=== PATIENT | male | born 1970 | race Caucasian/White ===

== ENCOUNTER 2025-01-14 14:43 | Inpatient (IN) ==
[2025-01-14] MEDS: SODIUM CHLORIDE 0.9% 500 ML IV ONE (15:17)
[2025-01-14 15:23] LABS: Basophils # (auto) 0.03 K/uL (0.00-0.20); Basophils % (auto) 0.5 %; Eosinophils # (auto) 0.08 K/uL (0.00-0.50); Eosinophils % (auto) 1.4 %; Hematocrit (blood only) 43.2 % (42.0-52.0); Hemoglobin 15.6 g/dl (14.0-18.0); Immature Granulocytes # (auto) 0.02 K/uL (0.01-0.20); Immature Granulocytes % (auto) 0.3 %; Lymphocytes % (auto) 22.6 %; Mean Corpuscular Hemoglobin 29.8 pg (25.0-34.0); Mean Corpuscular Hgb Conc 36.1 g/dL (32.0-36.0); Mean Corpuscular Volume 82.6 fL (80.0-100.0); Mean Platelet Volume 9.1 fL (9.4-12.4); Monocytes # (auto) 0.38 K/uL (0.11-0.59); Monocytes % (auto) 6.6 %; Neutrophils # (auto) 3.95 K/uL (1.40-6.50); Neutrophils % (auto) 68.6 %; Platelet Count 216 K/uL (130-400); RDW Coefficient of Variation 12.2 % (11.5-14.5); RDW Standard Deviation 36.4 fL (36.4-46.3); Red Blood Count 5.23 M/uL (4.70-6.10); White Blood Count 5.76 K/ul (4.8-10.8)
[2025-01-14] MEDS: SODIUM CHLORIDE 0.9% 1,000 ML IV ONE (15:34)
[2025-01-14 15:51] LABS: Albumin Globulin Ratio 1.4 (0.9-2); Albumin Level 4.8 gm/dl (3.4-5.0); Bilirubin,Total 0.7 mg/dl (0.2-1.0); Calcium 9.9 mg/dl (8.6-10.3); Creatinine Clr Calc Pharmacy 82.8 ml/min; Globulin 3.5 gm/dl (2.5-4.0); Potassium 4.1 mmol/L (3.5-5.1); Total Protein 8.3 gm/dl (6.0-8.3)
[2025-01-14] MEDS ORDERED: GLUCOSE 40% GEL 15 GM TUBE PO PRN (16:04)
[2025-01-14] MEDS ORDERED: GLUCOSE 10 TAB/TUBE PO PRN (16:04)
[2025-01-14] MEDS ORDERED: GLUCAGON FOR INJ 1 MG VIAL SQ PRN (16:04)
[2025-01-14] MEDS ORDERED: DEXTROSE 50% 50 ML SYRINGE IV PRN (16:04)
[2025-01-14] MEDS ORDERED: CARBOHYDRATES FOR HYPOGLYCEMIA PO PRN (16:04)
[2025-01-14] MEDS: INSULIN REGULAR 250 UNITS in SODIUM CHLORIDE 0.9% 247.5 ML IV SCH (16:32)
[2025-01-14] MEDS: STAT IV Infusion **Titration per Protocol STA (16:37)
[2025-01-14] MEDS ORDERED: PHARMACY GLYCEMIC MGMT CONSULT PRN (17:25)
--- NOTE | 2025-01-14 17:32 | History & Physical Report ---
Date of Service January 14, 2025 Assessment & Plan (1) Diabetes type 2: (2) HTN (hypertension): (3) HLD (hyperlipidemia): (4) KRISHNA on CPAP: Plan The patient is a 54-year-old male with a past medical history of HTN, KRISHNA on CPAP who presents to the ED on after he was sent in from PCP with abnormal glucose level of over 600 New DM type II Check A1c, continue insulin drip initiated in the ER Blood sugar already improving, ABG with a pH of 7.4, CO2 32, bicarb 20.8 Patient will likely need insulin on discharge, concerns with noncompliance Hx HTNuncontrolled: Continue home dose of losartan, consider increasing losartan to 50 mg daily on DC Continue IV hydralazine as needed for SBP over 160 Hx KRISHNA on CPAP: Continue CPAP at bedtime Hx HLDrefusing statin: Fish oil recommended by PCP A total of 60 minutes was spent on chart review/reviewing diagnostic data/facilitating plan of care/discussion with consultants Full code DVT prophylaxis: SCDs, encourage ambulation History of Present Illness Chief Complaint: Abnormal blood work, hyperglycemia Primary Care Provider: Nimisha Riley DO The patient is a 54-year-old male with a past medical history of KRISHNA on CPAP, HTNuncontrolled, noncompliance, HLD, refusing statin who presents to the ED on after he was directed to come to the ER after getting outpatient blood work done that showed an elevated glucose of over 600. Patient has no known history of diabetes. Patient does report some increased thirst, dry skin, dry mouth and increased urination but otherwise denies any abdominal pain/nausea/vomiting/diarrhea/chest pain/fever/chills/shortness of breath. On arrival to the ED, blood pressure is elevated with systolics in the 180s, Patient reports he had been unable to refill his losartan and has been off of this for 3 weeks. His first dose of losartan 25 mg was taken again this morning. Labs remarkable for sodium 133, chloride 94, anion gap 14, BUN 24, glucose 500 ABG showed a pH of 7.4, CO2 32.5, bicarb 20.8 The patient was started on insulin drip in the ER and will be admitted to telemetry for further management of new onset type 2 diabetes Allergies Allergy/AdvReac Type Severity Reaction Status Date / Time No Known Allergies Allergy Verified 01/14/25 16:11 Home Medications Medication Instructions Recorded Confirmed Type losartan 25 mg tablet 25 mg PO DAILY 01/14/25 01/14/25 History Past Med/Surg History Problem List (Updated 01/14/25 @ 17:28 by JONNY Bryan) KRISHNA on CPAP HLD (hyperlipidemia) HTN (hypertension) Diabetes type 2 Social History Smoking Status: Never smoker Second Hand Exposure: No; Do You Dip or Chew Tobacco: No; Tobacco Cessation Education Requested by Patient: No Hx Alcohol Use: No Hx Substance Use: No Preferred Language: Turkish Communication Ability: Effective Mechanical Inspector Required: No Beliefs That Will Affect Care: None Current Living Situation: Spouse Other Information That Helps Us Care for You: No Feels Safe at Home: Yes Safety Concerns: Feels Safe At This Time Assistive Devices: None Review of Systems Review of Systems: All systems reviewed & are unremarkable except as noted in HPI & below Physical Exam Constitutional: WD/WN, vitals as above Eyes: PERRL, conjunctivae normal, anicteric sclerae ENMT: external ear and nose normal, oropharynx normal Neck: trachea midline, no thyromegaly Respiratory: normal respiratory effort, lungs clear to auscultation Cardiovascular: RRR, no murmur, no edema Gastrointestinal (Abdomen): normal bowel sounds, soft, nontender, no hepatosplenomegaly Musculoskeletal: no cyanosis or clubbing, extremities motor strength 5/5 Neurologic: PERRL, EOMI, accommodation nl, no face palsy, no dysarthria Psychiatric: A+Ox3, euthymic affect Lymphatic: no cervical or axillary lymphadenopathy Results & Data Results & Data Vital Signs (Past 12 Hours) Vital Signs Temp Pulse Pulse Resp BP BP Pulse Ox 01/14/25 17:00 74 16 189/119 H 98 01/14/25 15:16 93 H 01/14/25 14:45 36.9 C 113 H 18 175/132 H 97 O2 Del Method 01/14/25 17:00 Room Air 01/14/25 15:16 01/14/25 14:45 Room Air Laboratory Results Laboratory Results WBC 5.76 K/ul (4.8-10.8) 01/14/25 14:56 RBC 5.23 M/uL (4.70-6.10) 01/14/25 14:56 Hgb 15.6 g/dl (14.0-18.0) 01/14/25 14:56 Hct 43.2 % (42.0-52.0) 01/14/25 14:56 MCV 82.6 fL (80.0-100.0) 01/14/25 14:56 MCH 29.8 pg (25.0-34.0) 01/14/25 14:56 MCHC 36.1 g/dL (32.0-36.0) H 01/14/25 14:56 RDW Std Deviation 36.4 fL (36.4-46.3) 01/14/25 14:56 RDW Coeff of Mp 12.2 % (11.5-14.5) 01/14/25 14:56 Plt Count 216 K/uL (130-400) 01/14/25 14:56 MPV 9.1 fL (9.4-12.4) L 01/14/25 14:56 Immature Gran % (Auto) 0.3 % 01/14/25 14:56 Neut % (Auto) 68.6 % 01/14/25 14:56 Lymph % (Auto) 22.6 % 01/14/25 14:56 Weld % (Auto) 6.6 % 01/14/25 14:56 Eos % (Auto) 1.4 % 01/14/25 14:56 Baso % (Auto) 0.5 % 01/14/25 14:56 Neut # (Auto) 3.95 K/uL (1.40-6.50) 01/14/25 14:56 Lymph # (Auto) 1.30 K/uL (1.20-3.40) 01/14/25 14:56 Weld # (Auto) 0.38 K/uL (0.11-0.59) 01/14/25 14:56 Eos # (Auto) 0.08 K/uL (0.00-0.50) 01/14/25 14:56 Baso # (Auto) 0.03 K/uL (0.00-0.20) 01/14/25 14:56 Immature Gran # (Auto) 0.02 K/uL (0.01-0.20) 01/14/25 14:56 Sodium 133 mmol/L (136-145) L 01/14/25 14:56 Potassium 4.1 mmol/L (3.5-5.1) 01/14/25 14:56 Chloride 94 mmol/L (98-107) L 01/14/25 14:56 Carbon Dioxide 25 mmol/L (21-32) 01/14/25 14:56 Anion Gap 14 (3-11) H 01/14/25 14:56 BUN 24 mg/dl (6-23) H 01/14/25 14:56 Creatinine 1.26 mg/dl (0.6-1.4) 01/14/25 14:56 Est Cr Clr Drug Dosing 82.8 ml/min 01/14/25 14:56 eGFR 67.78 01/14/25 14:56 BUN/Creatinine Ratio 19.0 (10-20) 01/14/25 14:56 Glucose 500 mg/dl (70-99(Fasting)) H* 01/14/25 14:56 POC Glucose 388 mg/dl (70-99) H* 01/14/25 16:14 Calcium 9.9 mg/dl (8.6-10.3) 01/14/25 14:56 Total Bilirubin 0.7 mg/dl (0.2-1.0) 01/14/25 14:56 AST 15 U/L (13-39) 01/14/25 14:56 ALT 24 U/L (7-52) 01/14/25 14:56 Alkaline Phosphatase 95 U/L (34-104) 01/14/25 14:56 Total Protein 8.3 gm/dl (6.0-8.3) 01/14/25 14:56 Albumin 4.8 gm/dl (3.4-5.0) 01/14/25 14:56 Globulin 3.5 gm/dl (2.5-4.0) 01/14/25 14:56 Albumin/Globulin Ratio 1.4 (0.9-2) 01/14/25 14:56 Supervising Physician Co-Signing Physician Notes Attending addendum: The patient was seen and examined in emergency room in presence of the He has been on lisinopril for the blood pressure and went to check his blood before getting the refill of medications and noted to have very high blood sugar and was sent into the emergency room He has not had a blood test for years Denies any significant symptoms but having mild symptoms of dry mouth, polydipsia and polyuria Denies any abdominal pain, nausea or vomiting,denies any numbness and or tingling in the extremities On examination Obese lying in bed without any acute distress Hemodynamically stable with blood pressure on the upper side at 189/119 Chest was clear to auscultate bilaterally HeartS1-S2, regular Abdomendistended, soft bowel sound present Extremitiesno edema CNSalert, awake and oriented x 3 and no focal sensory or motor deficit appreciated His admission labs and medications reviewed Noted to have a blood sugar of 388 without any evidence of DKA or any significant symptoms Given initial diagnosis with high blood sugar he will be started with intravenous insulin and will monitor monitored in the PCU He will likely to need insulin on discharge His blood pressure medications will be continued Agree with assessment and plan as outlined above by JONNY Harrell and take the full responsible care in the hospital Total time taken to document all this was [address] Rey Carter
[2025-01-14 18:06] LABS: Basophils # (auto) 0.03 K/uL (0.00-0.20); Basophils % (auto) 0.5 %; Eosinophils # (auto) 0.07 K/uL (0.00-0.50); Eosinophils % (auto) 1.2 %; Hematocrit (blood only) 40.8 % (42.0-52.0); Hemoglobin 14.4 g/dl (14.0-18.0); Immature Granulocytes # (auto) 0.02 K/uL (0.01-0.20); Immature Granulocytes % (auto) 0.3 %; Lymphocytes # (auto) 1.51 K/uL (1.20-3.40); Lymphocytes % (auto) 26.2 %; Mean Corpuscular Hemoglobin 29.9 pg (25.0-34.0); Mean Corpuscular Hgb Conc 35.3 g/dL (32.0-36.0); Mean Corpuscular Volume 84.8 fL (80.0-100.0); Mean Platelet Volume 9.1 fL (9.4-12.4); Monocytes # (auto) 0.35 K/uL (0.11-0.59); Monocytes % (auto) 6.1 %; Neutrophils # (auto) 3.79 K/uL (1.40-6.50); Neutrophils % (auto) 65.7 %; Platelet Count 182 K/uL (130-400); RDW Standard Deviation 37.1 fL (36.4-46.3); Red Blood Count 4.81 M/uL (4.70-6.10); White Blood Count 5.77 K/ul (4.8-10.8)
[2025-01-14] MEDS ORDERED: ACETAMINOPHEN 325 MG TAB PO PRN (18:21)
[2025-01-14 18:22] LABS: Alanine Aminotransferase 22 U/L (7-52); Albumin Globulin Ratio 1.3 (0.9-2); Albumin Level 4.4 gm/dl (3.4-5.0); Alkaline Phosphatase 84 U/L (34-104); Anion Gap 9 (3-11); Aspartate Aminotransferase 16 U/L (13-39); BUN Creatinine Ratio 20.8 (10-20); Bilirubin,Total 0.6 mg/dl (0.2-1.0); Blood Urea Nitrogen 21 mg/dl (6-23); Carbon Dioxide 27 mmol/L (21-32); Chloride 99 mmol/L (98-107); Creatinine Clr Calc Pharmacy 103.3 ml/min; Globulin 3.4 gm/dl (2.5-4.0); Glucose 306 mg/dl (70-99(Fasting)); Potassium 3.8 mmol/L (3.5-5.1); Sodium 135 mmol/L (136-145); Total Protein 7.8 gm/dl (6.0-8.3)
[2025-01-14] MEDS: PENDING 1/2NSS+20mEq KCL IVF SCH (18:22)
[2025-01-14] MEDS: SODIUM CHLOR 0.45% + 20MEQ KCL 20 MEQ/1,000 ML BAG IV SCH (18:33)
[2025-01-14 18:34] LABS: Estimated Average Glucose 324 mg/dl; Hemoglobin A1C 12.9 % (4.5-5.6)
[2025-01-14] MEDS: INSULIN ASPART PER UNIT CHARGE SC SCH (18:35)
[2025-01-14] MEDS: DKA GOAL RANGE 150-250 mg/dl ONE (18:35)
[2025-01-14] MEDS: LOSARTAN POTASSIUM 25 MG TAB PO SCH (18:35)
[2025-01-14 19:50] LABS: Chol HDL Ratio 7.4 (0-5); Cholesterol 238 mg/dl (0-200); HDL Cholesterol 32 mg/dl; Triglycerides 676 mg/dl (0-150)
[2025-01-14 20:10] VITALS: RESP 18
[2025-01-14] MEDS: hydrALAZINE HCL 20 MG/ML VIAL IV PRN (20:20)
[2025-01-14 20:36] LABS: Calcium 8.8 mg/dl (8.6-10.3); Creatinine Clr Calc Pharmacy 87.6 ml/min; Phosphorus 2.7 mg/dl (2.5-4.9); Potassium 3.5 mmol/L (3.5-5.1)
--- NOTE | 2025-01-14 20:40 | Emergency Department Note ---
History of Present Illness General Chief Complaint: Hyperglycemia Stated Complaint: HIGH BLOOD SUGAR Time Seen by Provider: 01/14/25 15:05 History of Present Illness Provider Complaint: + abnormal lab Returns today for: + called because of abnormal lab/test Description of abnormal result: High blood sugar Associated symptoms: no fever, no chills, no chest pain, no shortness of breath, no rash or no abdominal pain Home Medications Medication Instructions Recorded Confirmed Type losartan 25 mg tablet 25 mg PO DAILY 01/14/25 01/14/25 History Allergies Allergy/AdvReac Type Severity Reaction Status Date / Time No Known Allergies Allergy Verified 01/14/25 16:11 Past Med/Surg History Problem List (Updated 01/14/25 @ 20:40 by Blanco Mistry MD) DKA (diabetic ketoacidosis) (Acute) KRISHNA on CPAP HLD (hyperlipidemia) HTN (hypertension) Diabetes type 2 Social History Smoking Status: Never smoker Second Hand Exposure: No; Do You Dip or Chew Tobacco: No; Tobacco Cessation Education Requested by Patient: No Hx Alcohol Use: No Hx Substance Use: No Preferred Language: Georgian Communication Ability: Effective Voicer Required: No Beliefs That Will Affect Care: None Current Living Situation: Spouse Other Information That Helps Us Care for You: No Feels Safe at Home: Yes Safety Concerns: Feels Safe At This Time Assistive Devices: None Physical Exam 2 Vital Signs: Vital Signs - 24 hr 01/14/25 14:45 01/14/25 15:16 01/14/25 17:00 Temperature 36.9 C Temperature Source Temporal Artery Sc an Pulse Rate 113 H 93 H Pulse Rate [Finger ] 74 Respiratory Rate 18 16 Respiratory Effort / Characteristics Non-Labored Sponta neous Respiratory Depth Normal Respiratory Patter n Regular Blood Pressure 175/132 H Blood Pressure [Ri ght Arm] 189/119 H Blood Pressure Vi n 146 Blood Pressure Vi n [Right Arm] 142 Pulse Oximetry 97 98 Oxygen Delivery Me thod Room Air Room Air Sepsis Recent Feve r Within 48 Hours No Sepsis New/Unexpla ined Change in Men arthur Status N/A Sepsis Action Take n by Nursing No Action Required Physical Exam: Physical Exam GENERAL: oriented to person, place, and time. appears well-developed and well- nourished. HENT: Exam performed. - Head: Normocephalic and atraumatic. EYES: Conjunctivae and EOM are normal. Right eye exhibits no discharge. Left eye exhibits no discharge. No scleral icterus. NECK: Normal range of motion. Neck supple. No JVD present. CV: Normal rate, regular rhythm, normal heart sounds and intact distal pulses. There is no peripheral edema. Palpable radial pulses bue. PULM/CHEST: Effort normal and breath sounds normal. No respiratory distress. No stridor. no wheezes. no rales. ABD: The abdomen is soft. There is no tenderness. NEURO: Motor and sensation grossly intact. SKIN: Skin is warm and dry. He is not diaphoretic. PSYCH: normal mood and affect. Behavior is normal. Judgment and thought content normal. Course Course 1505: The patient was evaluated in room C2. A complete history and physical exam was performed Cardiac monitoring: An order was placed for continuous cardiac monitoring. The monitor shows a rate of 100 with sinus rhythm interpreted by vt 1605: Vital signs stable. Labs show evidence of DKA. Patient be started on insulin drip and given IV fluids and admitted to the [facility] hospitalist team. Administered Medications Hydralazine HCl (Hydralazine Hcl 20 Mg/Ml Vial) 5 mg IV Q6H PRN PRN Reason: SBP > 160 Stop: 02/13/25 17:29 Last Admin: 01/14/25 20:20 Dose: 5 mg Documented By: GTMarcia Insulin Human Regular 250 (units/ Sodium Chloride) 250 mls @ 5 mls/hr IV .Q24H SIMRAN; Protocol Stop: 02/13/25 16:14 Last Titration: 01/14/25 19:32 Dose: 5 units/hr, 5 mls/hr Documented By: GTH Co-signed By: PAH Titration: 01/14/25 18:40 Dose: 5 units/hr, 5 mls/hr Documented By: CA Co-signed By: GDH Titration: 01/14/25 17:31 Dose: 5 units/hr, 5 mls/hr Documented By: YNES Co-signed By: BS Admin: 01/14/25 16:32 Dose: 5 units/hr, 5 mls/hr Documented By: SW Co-signed By: TNK Potassium Chloride/Sodium Chloride (1/2 Nss + 20meq Kcl 1000ml) 20 meq in 1,000 mls @ 80 mls/hr IV .[id number] SIMRAN Stop: 02/13/25 18:29 Last Admin: 01/14/25 18:33 Dose: 80 mls/hr Documented By: APRYL Insulin Aspart (Insulin Aspart Per Unit Charge) 0 units SC ACHS SIMRAN Stop: 02/13/25 16:29 Last Admin: 01/14/25 19:53 Dose: 6 units Documented By: GT Co-signed By: ELSI Admin: 01/14/25 18:35 Dose: Not Given Documented By: APRYL Losartan Potassium (Losartan Potassium 25 Mg Tab) 25 mg PO DAILY SIMRAN Stop: 02/13/25 18:20 Last Admin: 01/14/25 18:35 Dose: 25 mg Documented By: APRYL Discontinued Medications Sodium Chloride (Nss) 500 mls @ 999 mls/hr IV .Q31M ONE Stop: 01/14/25 15:36 Last Infusion: 01/14/25 15:51 Dose: Infused Documented By: Admin: 01/14/25 15:17 Dose: 999 mls/hr Documented By: YNES Sodium Chloride (Nss) 1,000 mls @ 999 mls/hr IV .Q1H1M ONE Stop: 01/14/25 16:30 Last Infusion: 01/14/25 16:37 Dose: Infused Documented By: Admin: 01/14/25 15:34 Dose: 999 mls/hr Documented By: YNES Aburto (Stat Iv Infusion Titration Per Protocol) 1 each N/A NOW STA Stop: 01/14/25 16:05 Last Admin: 01/14/25 16:37 Dose: Not Given Documented By: YNES Aburto (Dka Goal Range 150-250 Mg/Dl) 1 each N/A ONE ONE Stop: 01/14/25 16:05 Last Admin: 01/14/25 18:35 Dose: 1 each Documented By: APRYL Aburto (Pending 1/2nss+20meq Kcl Ivf) 1 each N/A Q2H SIRMAN Stop: 02/13/25 17:29 Last Admin: 01/14/25 18:22 Dose: Not Given Documented By: APRYL Medical Decision Making Medical Records Attestation: I reviewed the patient's medical records. External medical records obtained by [facility] Case management and reviewed. Patient had blood work done by [facility] PCP today which showed a glucose of 637 with an anion gap of 13. According to the [facility] records patient's last PCP visit was in 2021 and the patient has multiple no-shows and missed calls for appointments in the [facility] portal. Laboratory Data Attestation: I reviewed the patient's lab results. 01/14/25 17:48 01/14/25 17:48 Lab Results 01/14/25 01/14/25 01/14/25 Range/Units 14:47 14:56 16:14 WBC 5.76 (4.8-10.8) K/ul RBC 5.23 (4.70-6.10) M/uL Hgb 15.6 (14.0-18.0) g/dl Hct 43.2 (42.0-52.0) % MCV 82.6 (80.0-100.0) fL MCH 29.8 (25.0-34.0) pg MCHC 36.1 H (32.0-36.0) g/dL RDW Std Deviation 36.4 (36.4-46.3) fL RDW Coeff of Mp 12.2 (11.5-14.5) % Plt Count 216 (130-400) K/uL MPV 9.1 L (9.4-12.4) fL Immature Gran % (Auto) 0.3 % Neut % (Auto) 68.6 % Lymph % (Auto) 22.6 % Frederick % (Auto) 6.6 % Eos % (Auto) 1.4 % Baso % (Auto) 0.5 % Neut # (Auto) 3.95 (1.40-6.50) K/uL Lymph # (Auto) 1.30 (1.20-3.40) K/uL Frederick # (Auto) 0.38 (0.11-0.59) K/uL Eos # (Auto) 0.08 (0.00-0.50) K/uL Baso # (Auto) 0.03 (0.00-0.20) K/uL Immature Gran # (Auto) 0.02 (0.01-0.20) K/uL Sodium 133 L (136-145) mmol/L Potassium 4.1 (3.5-5.1) mmol/L Chloride 94 L (98-107) mmol/L Carbon Dioxide 25 (21-32) mmol/L Anion Gap 14 H (3-11) BUN 24 H (6-23) mg/dl Creatinine 1.26 (0.6-1.4) mg/dl Est Cr Clr Drug Dosing 82.8 ml/min eGFR 67.78 BUN/Creatinine Ratio 19.0 (10-20) Glucose 500 H* (70-99(Fasting)) mg/dl POC Glucose 502 H* 388 H* (70-99) mg/dl Calcium 9.9 (8.6-10.3) mg/dl Total Bilirubin 0.7 (0.2-1.0) mg/dl AST 15 (13-39) U/L ALT 24 (7-52) U/L Alkaline Phosphatase 95 (34-104) U/L Total Protein 8.3 (6.0-8.3) gm/dl Albumin 4.8 (3.4-5.0) gm/dl Globulin 3.5 (2.5-4.0) gm/dl Albumin/Globulin Ratio 1.4 (0.9-2) [facility] Narrative 1505: The patient was evaluated in room C2. A complete history and physical exam was performed Cardiac monitoring: An order was placed for continuous cardiac monitoring. The monitor shows a rate of 100 with sinus rhythm interpreted by me 1605: Vital signs stable. Labs show evidence of DKA. Patient be started on insulin drip and given IV fluids and admitted to the [facility] Hospitalist team. Impression & Plan DKA (diabetic ketoacidosis) Critical Care Time Critical Care Time: Yes Total Critical Care Time: 45 I have personally spent greater than 45 minutes of critical care time in the direct management of this patient. This includes bedside care, interpretation of diagnostic studies, and testing, discussion with consultants, patient, and family members, and other required patient management activities. This 45 minutes is in excess of all separately billable procedures. Discharge Plan Visit Data Chief Complaint: Hyperglycemia Stated Complaint: HIGH BLOOD SUGAR ED Provider: Blanco Mistry Discharge Problem: DKA (diabetic ketoacidosis) Patient Disposition: Admitted As Inpatient Discharge Instructions Interventions: ED Discharge Assessment Last Done: 01/14/25 17:59
[2025-01-15 00:55] LABS: BUN Creatinine Ratio 20.2 (10-20); Calcium 8.4 mg/dl (8.6-10.3); Creatinine Clr Calc Pharmacy 105.4 ml/min; Phosphorus 3.6 mg/dl (2.5-4.9); Potassium 3.6 mmol/L (3.5-5.1)
--- OUTSIDE RECORDS SUMMARY | 2025-01-15 02:35 | External Medical Summary | Summary of Care ---
Author Name Unknown Organization [facility] Address [address] [facility] [address] Phone [phone] Care Team Providers Care Silk Spotter Name Role Phone Cosby Heriberto Munroebrea Primary Care Provider Encounter Details Date Type Department Care Team (Late st Contact Info) Description 10/13/2024 Population Health External Data Unspecified Department Allergies No known active allergiesdocumented as of this encounter (statuses as of 10/13/2024) Medications CPAP every night at bedtime. Active Blood Pressure Cuff cHECK BLOOD PRESSURE DAILY AND RECORD 1 Each 09/09/2023 Active Losartan Potassium 25 MG Oral Tablet (Cozaar)Indicat ions:HTN, goal below 140/90 Take 1 Tablet by mouth in the morning. 90 Tablet 09/14/2024 1:28 PM EST 07/15/2024 Active documented as of this encounter (statuses as of 10/13/2024) Active Problems Problem Noted Date Diagnosed Date HTN, goal below 140/90 05/09/2022 Dyslipidemia, goal LDL below 130 05/09/2022 Obesity, Class I, BMI 30.0-34.9 (see actual BMI) 07/16/2011 KRISHNA on CPAP 03/12/2006 Overview (04/02/2018): [facility] CFLEX [facility] History of supraventricular tachycardia 05/05/20 02 Overview (05/05/2002): ablated at [facility] 1998 documented as of this encounter (statuses as of 10/13/2024) Resolved Problems Problem Noted Date Diagnosed Date Resolved Date ADJ DISORDER W/DEPRES MOOD 08/22/2006 1 10/08/2016 documented as of this encounter (statuses as of 10/13/2024) Immunizations Name Administration Dates Next Due Covid-19 Ad26, Single Dose (Kathy/J&J) 022 Seasonal Influenza Vac., MDV, IM, 0.5 mL (Fluzon e) 08/20/2011 TDAP, Age 7 and older, IM (Adacel) 12/10/2010 documented as of this encounter Social History Tobacco Use Types Packs/Day Years Used Date Smoking Tobacco: Former Cigarettes 1 8 Smokeless Tobacco: Former Quit: 09/22/1998 Comments:quit smoking 1997 Alcohol Use Standard Drinks/Week Comments Yes 6 (1 standard drink = 0.6 oz pur e alcohol) 4-6 beers per week PHQ-2 Answer Date Recorded PHQ-2 Score 1 04/26/2020 Hunger Vital Sign Answer Date Recorded Worried About Running Out of Food in the Last Ye ar Never true 04/24/2020 Ran Out of Food in the Last Year Never true 04/24/2020 Sex and Gender Information Value Date Recorded Sex Assigned at Not on file Legal Sex Male 7:15 AM EST Gender Identity Not on file Sexual Orientation Not on file 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 on file Not on file Not on fi le documented as of this encounter Plan of Treatment Scheduled Procedures Name Priority Associated Diagnoses Date/Ti me COLONOSCOPY FLEXIBLE PROXIMAL DIAGNOSTIC Recall History of colon polyps Health Maintenance Due Date Last Done Comments Albumin/Creatinine Ratio 1988 Hepatitis B Vaccine (1 of 3 - 19+ 3-dose series) 1989 Cologuard 2015 Fecal Occult Blood Test 2015 Sigmoidoscopy 2015 Pneumococcal Vaccine: 50+ Years (1 of 1 - PCV) 2020 Zoster Vaccines (1 of 2) 2020 DTap/Tdap Vaccines (2 - Td or Tdap) 12/10/2020 12/10/2010, 04/22/2005 Depression Screening 04/26/2021 04/26/2020 GFR 04/02/2023 04/02/2022, 06/23, 02/10/2004 COVID-19 Vaccine ( season) 2024 10/05/2021 Influenza Vaccine (FLU shot) (#1) 2024 08/20/2011, 08/26/2001 Diabetes Screening 04/02/2025 04/02/2022, 1 10/08/2016, 09/01/2013, Additional history exists Lipid Panel 04/02/2027 04/02/2022, 07/23, 09/01/2013, Additional history exists Colonoscopy 09/30/2027 09/30/2022, 09/30/2022 Colorectal Cancer Screening 09/30/2027 Hepatitis C Screening Completed 06/07/2020 RETIRED - COLONOSCOPY-EVERY 5 YRS AGES 18-100 Discontinued 09/30/2022, 09/30/2022 HPV (Gardasil) Vaccine Aged Out No lo nger eligible based on patient's age to complete this topic MENINGOCOCCAL (MENACTRA/MENVEO) Aged Out No longer eligible based on patient's age to complete this topic Pneumococcal Vaccine: Pediatrics (0 to 5 Years) and At-Risk Patients (6 to 18 Years and 19+ Years) Aged Out No longer eligib le based on patient's age to complete this topic documented as of this encounter Medical Devices Not on filedocumented as of this encounter Care Teams Silk Spotter Relationship Specialty Start Date End Date Heriberto Cosby DO [address] [place] [id number] PCP - General Family Medicine 04/02/22 documented as of this encounter
--- OUTSIDE RECORDS SUMMARY | 2025-01-15 02:35 | External Medical Summary ---
Author Name Unknown Address Unknown Organization [id number]:[facility] [place] - [address] [place] [id number] Laboratory Report Ordering Provider Test Date Status MELISSA HIGUERA 01/14/2025 09:52:58 Final Normal: <30 mg/g creatinine< br/>High: 30-300 mg/g creatinine
Very High: >300 mg/g creatinine
Nephrotic: >2200 mg/g creatinine Observation Date Value Abnormality Reference (Units ) Status Albumin, Urine 01/14/2025 09:52:58 1.88 (mg/dL) Final Creatinine, Urine 01/14/2025 09:52:58 32 (mg/dL) Final Albumin/Creatinine [Mass Ratio] in Urine 01/14/2025 09:52:58 59 Above high normal <30 (mg/g Creat) Final Performing Location [facility] [place] - [address] [place] [id number]
--- OUTSIDE RECORDS SUMMARY | 2025-01-15 02:35 | External Medical Summary ---
Author Name Unknown Address Unknown Organization [id number]:[facility] [place] [address] - [address] [place] [id number] Laboratory Report Ordering Provider Test Date Status MELISSA HIGUERA 01/14/2025 09:51:48 Final Observation Date Value Abnormality Reference (Units ) Status BUN 01/14/2025 09:51:48 24 Above high normal 6-20 (mg/dL) Final Creatinine 01/14/2025 09:51:48 1.0 0.6-1.2 (mg/dL) Final Glomerular filtration rate/1.73 sq M.predicted [Volume Rate/Area] in Serum, Plasma or Blood by Creatinine-based formula (CKD-EPI) 01/14/2025 09:51:48 88 >=60 (mL/min) Final eGFR is calculated based on the CKD-EPI 2020 equation. Sodium 01/14/2025 09:51:48 132 Below low normal 135 -146 (mmol/L) Final Potassium 01/14/2025 09:51:48 4.9 3.5-5.1 (m mol/L) Final Cl 01/14/2025 09:51:48 93 Below low normal 98- 107 (mmol/L) Final CO2 01/14/2025 09:51:48 26 22-32 (mmo l/L) Final Anion gap 01/14/2025 09:51:48 13 7-15 (mmol /L) Final Glucose 01/14/2025 09:51:48 637 Above upper panic li mits 70-120 (mg/dL) Final Results rechecked Calcium 01/14/2025 09:51:48 9.9 8.4-10.2 ( mg/dL) Final Performing Location [facility] [address] [place] [id number]
--- OUTSIDE RECORDS SUMMARY | 2025-01-15 02:35 | External Medical Summary | Summary of Care ---
Author Name Unknown Organization [facility] Address [address] [facility] [place] [address] Phone [phone] Care Team Providers Care Yarn Examiner Name Role Phone Unavailable Primary Care Provider Unavailabl e Reason for Visit * Reason Onset Date Comments Medication Refill 01/12/2025 Encounter Details Date Type Department Care Team (Late st Contact Info) Description 01/12/2025 Refill Family [facility] [address] [place] [address] Nimisha Riley DO [address] [place] [address] HTN, goal below 140/90 Allergies No known active allergiesdocumented as of this encounter (statuses as of 01/13/2025) Medications CPAP every night at bedtime. Active Blood Pressure Cuff cHECK BLOOD PRESSURE DAILY AND RECORD 1 Each 3 Active Losartan Potassium 25 MG Oral Tablet (Cozaar)Indicat ions:HTN, goal below 140/90 Take 1 Tablet by mouth in the morning. 90 Tablet 10/15/2024 3:54 PM EST 4 01/13/20 25 Discontinu ed(Refill) documented as of this encounter (statuses as of 01/13/2025) Active Problems Problem Noted Date Diagnosed Date HTN, goal below 140/90 05/09/2022 Dyslipidemia, goal LDL below 130 05/09/2022 Obesity, Class I, BMI 30.0-34.9 (see actual BMI) 07/16/2011 KRISHNA on CPAP 03/12/2006 Overview (04/02/2018): [facility] History of supraventricular tachycardia 05/05/20 02 Overview (05/05/2002): ablated at [facility] [place] 1998 documented as of this encounter (statuses as of 01/13/2025) Resolved Problems Problem Noted Date Diagnosed Date Resolved Date ADJ DISORDER W/DEPRES MOOD 08/22/2006 1 10/08/2016 documented as of this encounter (statuses as of 01/13/2025) Immunizations Name Administration Dates Next Due Covid-19 [...] 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 * Telephone Encounter - Kirti Pereira railcar foreman - 01/12/2025 3:27 PM EDT Received message from [facility] regarding patient needing labs. Call Placed pt has no time for labs - tried to explain but he would not schedule Thank you for your assistance Kirti Pereira Professional Bass Fisher III [facility] 01/12/2025,3:27 PM * Telephone Encounter - Jessica Wolfe [facility] - 01/12/2025 3:18 PM EDTPending Prescriptions: Disp Refills Losartan Potassium 25 MG Oral Tablet (Coza*30 Tab*0 Sig: Take 1 Tablet by mouth in the morning. * Telephone Encounter - Jessica Wolfe [facility] - 01/12/2025 3:17 PM EDT Unable to authorize medication refills for pended medication(s) at this time. Per refill protocol patient should have BMP on file within past year. Reviewed : AMP report Care Gaps/Health Maintenance medications list for any routine labs typically ordered for this patient. Lab orders placed. Please contact patient to advise of labs ordered for blood draw AND URINE specimen (patient will have to be able to void to provide sample). Fasting is not required. Advise to obtain labs before requesting the next refill. After contacting patient, please forward request to No primary care provider on file.. Thank You, Jessica Wolfe [facility] Clinical Pharmacist [facility] ([facility]) [phone] 01/12/2025, 3:18 PM * Telephone Encounter - Milton Stokes, railcar foreman - 01/12/2025 2:40 PM EDT Pt needs new RX until appt. Pt is out of medication. Did you pend patient's preferred pharmacy and medication before forwarding?yes Pharmacy: [facility] Pending Prescriptions: Disp Refills Losartan Potassium 25 MG Oral Tablet (Coz*90 Tab*0 Sig: Take 1 Tablet by mouth in the morning. Last Visit: 05/09/2022 (in office), 09/27/2021 (telemedicine) Next Visit: 03/04/2025 If no future appointments scheduled, and last appointment is greater than a year ago, please schedule patient for a follow-up appointment Last date the medication was ordered: 07/15/2024 Is this request for a controlled substance?No Urine Drug Screen:No results found for this or any previous visit. Patient Phone Numbers Labs: Lab Results Component Value Date/Time CREAT 1.0 04/02/2022 02:26 PM CREAT 0.9 07/19/2011 08:38 AM POTASSIUM 4.3 04/02/2022 02:26 PM POTASSIUM 4.5 07/19/2011 08:38 AM TSH 1.64 02/10/2004 12:07 PM LDL 105 04/02/2022 02:26 PM LDL 90 08/08/2017 08:44 AM LDL NOT APPLICABLE 08/08/2017 08:44 AM ALT 63 02/10/2004 12:07 PM documented in this encounter Plan of Treatment Upcoming Encounters Date Type Department Care Team (Late st Contact Info) Description 03/04/2025 8:00 AM EDT Office Visit [facility] [address] [place] [address] Nimisha Riley DO [address] [place] [address] Scheduled Procedures Name Priority Associated Diagnoses Date/Ti me COLONOSCOPY FLEXIBLE PROXIMAL DIAGNOSTIC Recall History of colon polyps Health Maintenance Due Date Last Done Comments Depression Screening 1982 Albumin/Creatinine Ratio 1988 Hepatitis B Vaccine (1 of 3 - 19+ 3-dose series) 1989 Cologuard 2015 Fecal Occult Blood Test 2015 Sigmoidoscopy 2015 Pneumococcal Vaccine: 50+ Years (1 of 1 - PCV) 2020 Zoster Vaccines (1 of 2) 2020 DTap/Tdap Vaccines (2 - Td or Tdap) 12/10/2020 12/10/2010, 04/22/2005 GFR 04/02/2023 04/02/2022, 06/23, 02/10/2004 COVID-19 Vaccine ( season) 2024 10/05/2021 Diabetes Screening 04/02/2025 04/02/2022, 1 10/08/2016, 09/01/2013, Additional history exists Influenza Vaccine (FLU shot) (Season Ended) 2025 08/20/2011, 08/26/2001 Lipid Panel 04/02/2027 04/02/2022, 07/23, 09/01/2013, Additional [...] on patient's age to complete this topic Meningitis B Vaccine (Bexsero/Trumemba) Aged Out No longer eligible based on patient's age to complete this topic documented as of this encounter Medical Devices Not on filedocumented as of this encounter Visit Diagnoses Diagnosis HTN, goal below 140/90 Unspecified essential hypertension documented in this encounter
--- OUTSIDE RECORDS SUMMARY | 2025-01-15 02:35 | External Medical Summary | Summary of Care ---
Author Name Unknown Organization [facility] Address [address] [place] [facility] [place] [address] Phone [phone] Care Team Providers Care Rn Travel Name Role Phone Heriberto Cosby DO Primary Care Provider Reason for Referral * Evaluate & Treat - Unlimited Visits (Within 30 days (routine)) - Authorized Specialty Diagnoses / Procedures Referred By Teresa jones Referred To Contact Chiropractor Diagnoses Hip pain, unspecified laterality Heriberto Cosby DO [address] [address] Phone: tel: fax: Referral ID Status Reason Start Date Expiration Date Visits Requested Visits Authorized [id number] Authorized Specialty Services Required 11/16/2024 999 999 Question Answer Referral Priority Within 30 days (routine) Where should this appointment be scheduled? External Reason for Visit * Reason Onset Date Comments Referral 11/12/2024 Encounter Details Date Type Department Care Team (Late st Contact Info) Description 11/12/2024 Telephone Family Practice [facility] [address] [address] Heirberto Cosby DO [address] [place] [address] Referral Allergies No known active allergiesdocumented as of this encounter (statuses as of 11/16/2024) Medications CPAP every night at bedtime. Active Blood Pressure Cuff cHECK BLOOD PRESSURE DAILY AND RECORD 1 Each 09/09/2023 Active Losartan Potassium 25 MG Oral Tablet (Cozaar)Indicat ions:HTN, goal below 140/90 Take 1 Tablet by mouth in the morning. 90 Tablet 10/15/2024 3:54 PM EST 07/15/2024 Active documented as of this encounter (statuses as of 11/16/2024) Active Problems Problem Noted Date Diagnosed Date HTN, goal below 140/90 05/09/2022 Dyslipidemia, goal LDL below 130 05/09/2022 Obesity, Class I, BMI 30.0-34.9 (see actual BMI) 07/16/2011 KRISHNA on CPAP 03/12/2006 Overview (04/02/2018): [facility] History of supraventricular tachycardia 05/05/20 02 Overview (05/05/2002): ablated at [facility] [place] 1998 documented as of this encounter (statuses as of 11/16/2024) Resolved Problems Problem Noted Date Diagnosed Date Resolved Date ADJ DISORDER W/DEPRES MOOD 08/22/2006 1 10/08/2016 documented as of this encounter (statuses as of 11/16/2024) Immunizations Name Administration Dates Next Due Covid-19 [...] 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 Inboxologist Covering Provider All replies or additional communication must be routed to the PCP * Telephone Encounter - Luis Bennett KRISHNA - 11/12/2024 8:36 AM EST Has the patient been seen for this problem? (Y/N)?: no If No, an appt needs to be scheduled before a referral will be placed (exception: proceed with referral request if referral request is for a yearly routine appointment with speciality) Patient Name: Yanet Ames Patient Primary care provider: Heriberto Cosby, DO Does this need to be an insurance referral (Y/N)?: Yes If Yes, does the insurance referral need to be placed into the [employer] system? Not sure Name of preferred specialist: [facility] Type of specialist: CHIROPRACTOR REFERRAL Location of specialist: [place] [facility] Phone #: [phone] Specialist's Fax #: [phone] Reason for visit: He stated he really doesn't know Date of visit: 9:456 this morning 11/12/24 I told him that he would have to make an appointment and he stated that he is not going to pay twice just to get a referral. documented in this encounter Plan of Treatment Scheduled Procedures Name Priority Associated Diagnoses Date/Ti me COLONOSCOPY FLEXIBLE PROXIMAL DIAGNOSTIC Recall History of colon polyps Scheduled Referrals Name Type Priority Associated Diagnoses Orde r Schedule CHIROPRACTOR REFERRAL OP Referral Within 30 days (routine) Hip pain, unspecified laterality Ordered: 11/16/2024 Health Maintenance Due Date Last Done Comments [...] 04/02/2023 04/02/2022, 06/23, 02/10/2004 COVID-19 Vaccine ( - season) 2024 10/05/2021 Influenza Vaccine (FLU shot) [...] as of this encounter Visit Diagnoses Diagnosis Hip pain, unspecified laterality- Primary documented in this encounter Care Teams Rn Travel Relationship Specialty Start Date End Date Heriberto Cosby DO [address] [place] [address] PCP - General Family Medicine 04/02/22 documented as of this encounter
--- OUTSIDE RECORDS SUMMARY | 2025-01-15 02:35 | External Medical Summary | Summary of Care ---
Author Name Unknown Organization [facility] Address [address] [facility] [place] [address] Phone [phone] Care Team Providers Care Sql Developer Name Role Phone Cosby Heriberto [place]ro[place] Primary Care Provider Reason for Visit * Reason Onset Date Comments Durable Medical Equipment 07/06/2024 CPAP s upplies, pressure and NOC Encounter Details Date Type Department Care Team (Late st Contact Info) Description 07/06/2024 Telephone [facility] [address] [place] [place] [phone] Yamila Tate DO [address] [facility] [address] Durable Medical Equipment (CPAP supplies, ... Allergies No known active allergiesdocumented as of this encounter (statuses as of 07/29/2024) Medications Medication Sig Dispensed Refills Start Date End Date Status CPAP every night at bedtime. Active Blood Pressure Cuff cHECK BLOOD PRESSURE DAILY AND RECORD 1 Each 09/09/2023 Active Losartan Potassium 25 MG Oral Tablet (Cozaar)Indicatio ns:HTN, goal below 140/90 Take 1 Tablet by mouth in the morning. 90 Tablet 3 07/30/2023 07/12/2024 Discontinued (Refill) documented as of this encounter (statuses as of 07/29/2024) Active Problems Problem Noted Date Diagnosed Date HTN, goal below 140/90 05/09/2022 Dyslipidemia, goal LDL below 130 05/09/2022 Obesity, Class I, BMI 30.0-34.9 (see actual BMI) 07/16/2011 KRISHNA on CPAP 03/12/2006 Overview: [facility]LEX A[facility] History of supraventricular tachycardia 05/05/20 Overview: ablated at [facility] [place] 1998 documented as of this encounter (statuses as of 07/29/2024) Resolved Problems Problem Noted Date Diagnosed Date Resolved Date ADJ DISORDER W/DEPRES MOOD 08/22/2006 1 10/08/2016 documented as of this encounter (statuses as of 07/29/2024) Immunizations Name Administration Dates Next Due Covid-19 Ad26, Single Dose (Kathy/J&J) 022 Seasonal Influenza Vac., MDV, IM, 0.5 mL (Fluzon e) 08/20/2011,08/26/2001 TD, Preservative Free 04/22/2005 TDAP, Age 7 and older, IM (Adacel) [...] in the Last Year Never true 04/24/2020 Utilities Answer Date Recorded Do you have trouble paying y our heating, water, or electric bill? (Adult - for ages 18 years and over) Not on file 03/09/2024 Is your family able to pay t he heat, water, or electric bill? (Household - for ages 0-17 years) Not on file 03/09/2024 Does your family have access to good internet? (Household - for ages 0-17 years) Not on file 03/09/2024 Social Connections Answer Date Recorded How often do you feel lonely or isolated from those around you? (Adult - for ages 18 years and over) Not on file 03/09/2024 Sex and Gender Information Value Date Recorded Sex Assigned at Not on file Gender Identity Not on file Sexual Orientation Not on file Job Start Date Occupation Industry Not on file Not on file Not on file documented as of this encounter Miscellaneous Notes * Telephone Encounter - Yamila Tate DO - 07/29/2024 5:50 PM EST Nocturnal oximetry 07/22/24 on CPAP & RA. SpO2 uyen 88%, time <= 88% 2 seconds, time = 89% 5 seconds. * Telephone Encounter - Alta Bolanos OSA - 07/06/2024 9:39 AM EDT DME order for CPAP supplies and NOC submitted to [facility]. documented in this encounter Plan of Treatment Scheduled Procedures Name Priority Associated Diagnoses Date/Ti me COLONOSCOPY FLEXIBLE PROXIMAL DIAGNOSTIC Recall History of colon polyps Health Maintenance Due Date Last Done Comments Albumin/Creatinine Ratio 1988 Hepatitis B Vaccine (1 of 3 - 19+ 3-dose series) 1989 Cologuard 2015 Fecal Occult Blood Test 2015 Sigmoidoscopy 2015 Zoster Vaccines (1 of 2) 2020 DTap/Tdap [...] 5 Years) and At-Risk Patients (6 to 64 Years) Aged Out No longer eligible based on patient's age to complete this topic documented as of this encounter Medical Devices Not on filedocumented as of this encounter Care Teams Sql Developer Relationship Specialty Start Date End Date Heriberto Cosby DO [address] [place] [address] PCP - General Family Medicine 04/02/22 documented as of this encounter
--- OUTSIDE RECORDS SUMMARY | 2025-01-15 02:35 | External Medical Summary | Summary of Care ---
Author Name Unknown Organization [facility] Address [address] [facility] [place] [address] Phone [phone] Care Team Providers Care Cad Librarian Name Role Phone Unavailable Primary Care Provider Unavailabl e Reason for Visit * Reason Onset Date Comments Medication Refill 01/12/2025 Encounter Details Date Type Department Care Team (Late st Contact Info) Description 01/12/2025 Refill Family [facility] [address] [place] [address] Nimisha Riley DO [address] [place] [address] HTN, goal below 140/90 Allergies No known [...] tachycardia 05/05/20 02 Overview (05/05/2002): ablated at [facility] [place] 1998 documented as of this encounter (statuses [...] 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 * Telephone Encounter - Kirti Pereira hair tinter - 01/12/2025 3:27 PM EDT Received message from [facility] regarding patient needing labs. Call Placed pt has no time for labs - tried to explain but he would not schedule Thank you for your assistance Kirti Pereira Corn Cutter Operator III [facility] 01/12/2025,3:27 PM * Telephone Encounter - Jessica Wolfe [facility] - 01/12/2025 3:18 PM EDTPending Prescriptions: Disp Refills Losartan Potassium 25 MG Oral Tablet (Coza*30 Tab*0 Sig: Take 1 Tablet by mouth in the morning. * Telephone Encounter - Jessica Wolfe [facility] - 01/12/2025 3:17 PM EDT Unable to [...] provider on file.. Thank You, Jessica Wolfe [facility] Clinical Pharmacist [facility] ([facility]) [phone] 01/12/2025, 3:18 PM * Telephone Encounter - Milton Stokes, hair tinter - 01/12/2025 2:40 PM EDT Pt needs new RX until appt. Pt is out of medication. Did you pend patient's preferred pharmacy and medication before forwarding?yes Pharmacy: [facility] Pending Prescriptions: Disp Refills Losartan Potassium [...] Description 03/04/2025 8:00 AM EDT Office Visit [facility] [address] [place] [address] Nimisha Riley DO [address] [place] [address] Scheduled Procedures Name Priority Associated Diagnoses Date/Ti [...]
[2025-01-15] MEDS: LANTUS PER UNIT CHARGE SC STA (04:30)
[2025-01-15] MEDS: INSULIN ASPART PER UNIT CHARGE SC SCH (04:30)
[2025-01-15 05:00] LABS: BUN Creatinine Ratio 21.3 (10-20); Calcium 8.3 mg/dl (8.6-10.3); Creatinine Clr Calc Pharmacy 117.2 ml/min; Magnesium 1.9 mg/dl (1.7-2.4); Potassium 3.7 mmol/L (3.5-5.1)
[2025-01-15] MEDS: LANTUS PER UNIT CHARGE SC SCH (09:01)
[2025-01-15] MEDS: LOSARTAN POTASSIUM 50 MG TAB PO SCH (09:01)
--- NOTE | 2025-01-15 10:12 | Pharmacy Report ---
Pharmacy Glycemic Short Note 2 - Date of Service January 15, 2025 - Glycemic Short BSG Results (Last 24 hours): 01/14/25 01/14/25 01/14/25 14:47 14:56 16:14 Glucose 500 H* POC Glucose 502 H* 388 H* 01/14/25 01/14/25 01/14/25 17:29 17:48 18:33 Glucose 306 H* POC Glucose 339 H* 294 H 01/14/25 01/14/25 01/14/25 19:32 20:02 20:23 Glucose 262 H POC Glucose 274 H 251 H 01/14/25 01/14/25 01/14/25 21:32 22:02 23:05 Glucose POC Glucose 169 H 170 H 152 H 01/15/25 01/15/25 01/15/25 00:07 00:20 01:05 Glucose 138 H POC Glucose 139 H 120 H 01/15/25 01/15/25 01/15/25 02:06 04:09 04:17 Glucose 189 H POC Glucose 118 H 181 H 01/15/25 07:26 Glucose POC Glucose 210 H OUTPATIENT ANTIDIABETIC REGIMEN: * None * A1c 12.9% - NEW DIAGNOSIS ASSESSMENT: * 54 YO M, PMH of HTN, KRISHNA on CPAP, new dx type 2 DM, sent to ED yesterday from PCP for BSG over 600mg/dl. * Patient started on insulin drip, and transitioned to basal bolus insulin last night. On type 2 DM Diet. * Patient received 10 units of basal this AM at 0430, will begin 20 units daily this morning and tighten NovoLog parameters, titrate to goal blood sugar. PLAN FOR INPATIENT GLYCEMIC CONTROL: * Basal insulin * Lantus 20 units SQ daily * Bolus insulin * NovoLog per scale ACHS or Q6hrs while NPO * Goal Range: Low 110 mg/dL - High 140 mg/dL * Correction Factor: 25 mg/dL/unit * Nutritional / Prandial insulin per carb ratio of 1 unit per 8 grams CHO consumed
[2025-01-15 11:16] VITALS: BP 177/115; TEMP 98.1; O2SAT 97
--- NOTE | 2025-01-15 13:03 | Discharge Summary ---
Date of Service January 15, 2025 Admission HPI Per Admitting Provider The patient is a 54-year-old male with a past medical history of KRISHNA on CPAP, HTNuncontrolled, noncompliance, HLD, refusing statin who presents to the ED on after he was directed to come to the ER after getting outpatient blood work done that showed an elevated glucose of over 600. Patient has no known history of diabetes. Patient does report some increased thirst, dry skin, dry mouth and increased urination but otherwise denies any abdominal pain/nausea/vomiting/diarrhea/chest pain/fever/chills/shortness of breath. On arrival to the ED, blood pressure is elevated with systolics in the 180s, Patient reports he had been unable to refill his losartan and has been off of this for 3 weeks. His first dose of losartan 25 mg was taken again this morning. Labs remarkable for sodium 133, chloride 94, anion gap 14, BUN 24, glucose 500 ABG showed a pH of 7.4, CO2 32.5, bicarb 20.8 The patient was started on insulin drip in the ER and will be admitted to telemetry for further management of new onset type 2 diabetes Admission Exam Per Admitting Provider Constitutional: WD/WN, vitals as above Eyes: PERRL, conjunctivae normal, anicteric sclerae ENMT: external ear and nose normal, oropharynx normal Neck: trachea midline, no thyromegaly Respiratory: normal respiratory effort, lungs clear to auscultation Cardiovascular: RRR, no murmur, no edema Gastrointestinal (Abdomen): normal bowel sounds, soft, nontender, no hepatosplenomegaly Musculoskeletal: no cyanosis or clubbing, extremities motor strength 5/5 Neurologic: PERRL, EOMI, accommodation nl, no face palsy, no dysarthria Psychiatric: A+Ox3, euthymic affect Lymphatic: no cervical or axillary lymphadenopathy Principal Diagnosis Type 2 diabetes mellitus Hypertension Hypertriglyceridemia Discharge Exam Constitutional: WD/WN, vitals as above, NAD, sitting up in bed, pleasant, conversing easily Respiratory: normal respiratory effort, lungs clear to auscultation, no wheeze, rales, rhonchi. Normal insp/exp effort, no accessory muscle use Cardiovascular: RRR, no murmur, no edema Vessels: no JVD or carotid bruit Chest: normal inspection of chest Abdomen: normal bowel sounds, soft, nontender, no hepatosplenomegaly Musculoskeletal: no cyanosis or clubbing, extremities motor strength 5/5 Skin: no rashes, warm and dry normal turgor Neurologic: PERRL, EOMI, accommodation nl, no face palsy, no dysarthria CN's II- XI intact bilaterally and moves all extremities Psychiatric: A+Ox3, euthymic affect Discharge Data Allergies Allergy/AdvReac Type Severity Reaction Status Date / Time No Known Allergies Allergy Verified 01/14/25 16:11 Consultations 01/14/25 16:05 ED Decision to Admit Stat Hospital Course (1) Diabetes type 2: (2) HTN (hypertension): (3) HLD (hyperlipidemia): (4) KRISHNA on CPAP: Plan The patient is a 54-year-old male with a past medical history of HTN, KRISHNA on CPAP who presents to the ED on after he was sent in from PCP with abnormal glucose level of over 600 New DM type II Patient was referred from outpatient after he was found to have blood glucose above 600s at this outpatient. Venous blood gas did not show acidosis Patient was started on insulin drip and was admitted to the medical floor. HbA1c was found to be 12.9. Extensive discussion was done with the patient regarding diagnosis of diabetes, management, diabetic dieting and exercise. He was started on metformin 500 mg twice a day after the discussion. We also discussed starting insulin given his significantly elevated A1c which he was agreeable with. We discussed starting glargine 10 units in the morning and titrating it up based on the response. We also discussed following up with primary care provider and diabetic clinic to monitor and discuss further treatment. I also discussed possibility of initiating GLP-1 agonist as outpatient given the history of class I obesity, diabetes, high blood pressure and triglyceridemia. Patient to discuss it further as outpatient. Hypertensionlosartan was increased to 50 mg once a day. I discussed home blood pressure monitoring. Patient to make a log of blood pressure reading and follow-up as outpatient Hypertriglyceridemiatriglyceride of 676, total cholesterol of 238 and LDL of 32 Mg per DL. He needs signifies insulin resistance. Given his diagnosis of diabetes and significantly elevated triglycerides; he was initiated on high-dose statin. Please note the above document was generated using voice recognition software. It may contain grammatical, syntax or spelling errors. Any formal questions or concerns about the content, text or information contained within the body of thi s dictation should be directly addressed to the provider for clarification Total Time Total Time Spent Total Time Spent (In Minutes): 60 Total Time Includes: Examination of the Patient, Discharge Planning, Medication Reconciliation, Communication With Other Providers and Other Discharge Plan Discharge Items Patient Disposition: Home - Self-Care Reason For Visit: NEW DM2 Discharge Diagnosis: Uncontrolled type 2 diabetes mellitus Hypertriglyceridemia Activity: Resume your previous activity Non-emergency contact: Primary Care Provider Call non-emergency contact if: you have any medication questions and your symptoms worsen Follow-up/Referrals: Nimisha Riley, [Primary Care Provider] - Diet: Carb Consistent or DM2 Addtl Attending Provider Instructions: You were admitted to the hospital due to high blood glucose levels. Your HbA1c was 12.9%. You are prescribed following medication for type 2 diabetes mellitus; 1) Take metformin 500 mg extended release twice a day. Please take it after food. 2) Take insulin glargine 10 units once a day in the morning. Please check fasting blood glucose and make adjustment to the insulin as follows; a) If the fasting blood glucose is greater than 200; increase insulin by 4 units every 2 days b) If the fasting blood glucose is between 140-200; increase insulin by 2 units every 2 days c) If the fasting glucoses between 90 to 140; continue the same dose. d) If the fasting blood glucose is less than 90; decrease insulin by 2 units You are also found to have high blood pressure for which you are prescribed lo sartan 50 mg once a day. Please check your blood pressure daily as we discussed and make a log of it. Adjustment may be needed depending on your blood pressure. You are also prescribed Lipitor 80 mg once a day for high triglyceride and cholesterol levels. An appointment will be set up with your primary care doctor sometime next week to discuss further management. You can discuss about possibly starting GLP-1 agonist(like Ozempic) that can help with high blood glucose, high cholesterol and high blood pressure. Pending Studies at Discharge: No Stand-Alone Forms: My [employer], Smoking Cessation Medications and DC Order Prescriptions: New (DME) blood-glucose meter [OneTouch Ultra2 Meter] Misc See Rx Instructions .Route Qty: 1 0RF Rx Instructions: As directed (DME) OneTouch Verio test strips Strip See Rx Instructions .Route Qty: 100 0RF Rx Instructions: As directed (DME) lancets [OneTouch Delica Plus Lancet] 33 gauge misc See Rx Instructions .Route Qty: 100 0RF Rx Instructions: As directed insulin glargine [Basaglar KwikPen U-100 Insulin] 100 unit/mL (3 mL) insulin pen 10 unit subcut DAILY Qty: 15 0RF (DME) pen needle, diabetic [Pen Needle] 31 gauge x 1/4" needle See Rx Instructions .Route Qty: 100 0RF Rx Instructions: As directed losartan 50 mg tablet 50 mg PO DAILY Qty: 30 0RF atorvastatin [Lipitor] 80 mg tablet 80 mg PO DAILY Qty: 30 0RF metformin 500 mg tablet extended release 24 hr 500 mg PO BID Qty: 60 0RF Discontinued losartan 25 mg tablet 25 mg PO DAILY Discharge Orders: Discharge Order (Routine); Ordered 01/15/25 Ordered By: Emery Up Admission Data Admit Date/Time: 01/14/25 17:12 Attending Provider: Emery Up Admit Provider: Brenda Carter Primary Care Provider: Nimisha Riley Other Providers: Brenda Carter
[2025-01-15 13:07] VITALS: PULSE 75
[2025-01-15] MEDS ORDERED: LANTUS PER UNIT CHARGE SC SCH (21:00)
--- NOTE | 2025-01-16 13:03 | Electrocardiogram Report ---
Test Reason : Blood Pressure : */* mmHG Vent. Rate : 72 BPM Atrial Rate : 72 BPM P-R Int : 204 ms QRS Dur : 94 ms QT Int : 414 ms P-R-T Axes : 52 13 12 degrees QTcB Int : 453 ms Normal sinus rhythm Normal ECG No previous ECGs available Confirmed by Dav Minaya ([id number]) on 01/16/2025 1:03:11 PM Referred By: REFERRED SELF Confirmed By: Dav Minaya
[2025-01-17 09:51] LABS: iSTAT Arterial Blood Gas HCO3 21 meg/L (19-24); iSTAT Arterial Blood Gas pCO2 33 mmHg (35-46); iSTAT Arterial Blood Gas pH 7.41 (7.35-7.45); iSTAT Arterial Blood Gas pO2 81 mmHg (80-95); iSTAT Carbon Dioxide 22 mmol/L (24-31); iSTAT Hematocrit 36 % (42-52); iSTAT Hemoglobin 12.2 g/dl (14.0-18.0); iSTAT Potassium 3.8 mmol/L (3.3-5.0); iSTAT Sodium 133 mmol/L (135-144)
== END 2025-01-15 13:47 | disposition home or self-care (01) | DRG 639 ==
LOC: ED 14:43 → 2S 17:12 → SUATTDRO 17:12 → 2S 17:59

== ENCOUNTER 2025-01-23 15:30 | Inpatient (IN) ==
--- OUTSIDE RECORDS SUMMARY | 2025-01-23 15:33 | External Medical Summary | Summary of Care ---
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 Pt admitted to [facility] on 01/14/2025 and discharged on 01/15/2025 for HTN, Type 2 DM. Pt continues the insulin, Metformin, Lipitor and Losartan 50 mg. Pt states he has had nausea and diarrhea on 01/15 and questions it may be related to Lipitor, diarrhea improved since taking Lomotil last evening. Immunizations 01/20/2025 Hospital Follow-Up 01/20/2025 Encounter Details Date Type Department Care Team (Late st Contact Info) Description 01/20/2025 11:20 AM EDT Office Visit Family [facility] [address] [phone] Nimisha Smith DO [address] [address] Hospital discharge follow-up*; Need for dszuadgcjr-rrulwcm-px rtussis (Tdap) vaccine; Dyslipidemia, goal LDL below 130; KRSIHNA on CPAP; HTN, goal below 140/90; Type 2 diabetes mellitus with hemoglobin A1c goal of less than 7.0% (HCC); Screening for prostate cancer Allergies No known active allergiesdocumented as of this encounter (statuses as of 01/20/2025) Medications CPAP every night at bedtime. Active Blood Pressure Cuff cHECK BLOOD PRESSURE DAILY AND RECORD 1 Each 09/09/20 Active Additional Information Patient not taking.Reported on 01/20/2025 Losartan Potassium 25 MG Oral Tablet (Cozaar)Indicat ions:HTN, goal below 140/90 Take 1 Tablet by mouth in the morning. 90 Tablet 01/15/20 Active Additional Information Patient taking differently: 50 mgOral Daily(AM), Reported on 01/20/2025 [employer] Reflect w/Device Kit Use as directed. 01/16/20 25 Active [place] [employer] In Vitro Strip Use as directed. 01/16/20 Active Insulin Glargine-yfgn 100 UNIT/ML Subcutaneous Solution Pen-injector Inject 10 Units under the skin in the morning. Or as per sliding scale. 01/16/20 25 Active BD Pen Needle Micro U/F 32G X 6 MM Use 1 Each as directed in the morning. Use as directed.. 01/16/20 25 Active Pinpoint MD Delica Plus [id number] Use as directed. 01/16/20 25 Active metFORMIN HCl ER 500 MG Oral Tablet Extended Release 24 Hour (Glucophage XR) Take 1 Tablet by mouth in the morning and 1 Tablet before bedtime. 01/16/20 25 Active Losartan Potassium 50 MG Oral Tablet (Cozaar) Take 1 Tablet by mouth in the morning. 01/21/20 25 Active Atorvastatin Calcium 80 MG Oral Tablet (Lipitor) Take 0.5 Tablets by mouth in the morning. 01/21/20 25 Active Atorvastatin Calcium 80 MG Oral Tablet (Lipitor) Take 1 Tablet by mouth in the morning. 01/16/20 25 025 Discontinued documented as of this encounter (statuses as of 01/20/2025) Active Problems Problem Noted Date Diagnosed Date HTN, goal below 140/90 05/09/2022 Dyslipidemia, goal LDL below 130 05/09/2022 Obesity, Class I, BMI 30.0-34.9 (see actual BMI) 07/16/2011 KRISHNA on CPAP 03/12/2006 Overview (04/02/2018): REMSTAR CFLEX A[facility] History of supraventricular tachycardia 05/05/20 02 Overview (05/05/2002): [place] [facility] [place] documented as of this encounter (statuses as of 01/20/2025) Resolved Problems Problem Noted Date Diagnosed Date Resolved Date ADJ DISORDER W/DEPRES MOOD 08/22/2006 1 10/08/2016 documented as of this encounter (statuses as of 01/20/2025) Immunizations Name Administration Dates Next Due Covid-19 Ad26, Single Dose (Kathy/J&J) 022 Seasonal Influenza Vac., MDV, IM, 0.5 mL (Fluzon e) 08/20/2011 TDAP, Age 7 and older, IM (Adacel) 01/20/2025, documented as of this encounter Social History Tobacco Use Types Packs/Day Years Used Date Smoking Tobacco: Former Cigarettes 1 8 Smokeless Tobacco: Former Quit: 09/22/1998 Tobacco Cessation:Counseling Given: Not Answered Comments:quit smoking 03/22/1998 Alcohol Use Standard Drinks/Week Comments Yes 6 [...] 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 Not on file Not on fi le documented as of this encounter Last Filed Vital Signs Vital Sign Reading Time Taken Comments Blood Pressure 110/73 01/20/2025 11:20 AM EDT Pulse 87 01/20/2025 11:20 AM EDT Temperature 36.1 °C (97 °F) 01/20/2025 11:20 AM EDT Respiratory Rate 16 01/20/2025 11:20 AM EDT Oxygen Saturation 97% 01/20/2025 11:20 AM EDT Inhaled Oxygen Concentration - - Weight 108.5 kg (239 lb 2 oz) 01/20/2025 11:20 A M EDT Height - - Body Mass Index 34.31 06/30/2024 11:00 AM EDT documented in this encounter Patient Instructions * Patient Instructions* Dorcas Luna LPN - 01/20/2025 11:25 AM EDT ~~PATIENT INSTRUCTIONS FOR TDAP VACCINE~~ Possible side effects of TDAP vaccine, (tetanus shot), are usually mild and can include: 1. Soreness or redness at injection site 2. Low grade fever 3. Body aches You may use a fever / pain reducing medication as needed for these symptoms. LET YOUR DOCTOR KNOW IMMEDIATELY IF YOU HAVE DIFFICULTY BREATHING OR SWALLOWING, EXPERIENCE ITCHINGOF FEET OR HANDS, HAVE SWELLING OF EYES, FACE OR INSIDE OF NOSE. documented in this encounter Progress Notes * Nimisha Smith DO - 01/20/2025 11:31 AM EDT Subjective: Yanet Ames is a 54 year old male. Chief Complaint Patient presents with Hospital Follow-Up Pt here for Hosp Follow up. Pt admitted to [facility] on 01/14/2025 and discharged on 01/15/2025 for HTN, Type 2 DM. Pt continues the insulin, Metformin, Lipitor and Losartan 50 mg. Pt states he hashad nausea and diarrhea on 01/15 and questions it may be related to Lipitor, diarrhea improved sincetaking Lomotil last evening. Immunizations Hospital Follow-Up There are no exam notes on file for this visit. HPI: This is a 54 year old male with PMHx as below presents with hospital follow up Noticed inc urination December 2024 Admitted01/14/25 Discharged 01/15/25 Pmhx: KRISHNA, HTN, HLD Admitted with elevated BS in 600s A1c 12.9 New meds Metformin, insulin, losartan (increased dosage), lipitor Believes has diarrhea from statin Health Maintenance Due Topic Date Due Depression Screening Never done Hepatitis B Vaccine (1 of 3 - 19+ 3-dose series) Never done Zoster Vaccines (1 of 2) Never done Pneumococcal Vaccine: 50+ Years (1 of 1 - PCV) Never done DTap/Tdap Vaccines (2 - Td or Tdap) 12/10/2020 COVID-19 Vaccine ( season) 2024 Patient Active Problem List Diagnosis History of supraventricular tachycardia KRISHNA on CPAP Obesity, Class I, BMI 30.0-34.9 (see actual BMI) HTN, goal below 140/90 Dyslipidemia, goal LDL below 130 Current Outpatient Medications Medication Sig Dispense Refill CPAP every night at bedtime. Losartan Potassium 25 MG Oral Tablet (Cozaar) Take 1 Tablet by mouth in the morning. (Patient taking differently: Take 2 Tablets by mouth in the morning.) 90 Tablet 0 [employer] Reflect w/Device Kit Use as directed. [employer] In Vitro Strip Use as directed. Insulin Glargine-yfgn 100 UNIT/ML Subcutaneous Solution Pen-injector Inject 10 Units under the skinin the morning. Or as per sliding scale. BD Pen Needle Micro U/F 32G X 6 MM Use 1 Each as directed in the morning. Use as directed.. Pinpoint MD Delica Plus [id number] Use as directed. metFORMIN HCl ER 500 MG Oral Tablet Extended Release 24 Hour (Glucophage XR) Take 1 Tablet by mouthin the morning and 1 Tablet before bedtime. Losartan Potassium 50 MG Oral Tablet (Cozaar) Take 1 Tablet by mouth in the morning. Atorvastatin Calcium 80 MG Oral Tablet (Lipitor) Take 0.5 Tablets by mouth in the morning. Blood Pressure Cuff cHECK BLOOD PRESSURE DAILY AND RECORD (Patient not taking: Reported on 01/20/2025) 1 Each 0 No current facility-administered medications for this visit. Past Medical History: Diagnosis Date Adjustment disorder with depressed mood 08/22/2006 INFORMATION 2 left wrist fracutres, casted, no pins Morbid obesity, BMI not known (HCC) 07/16/2011 Paroxysmal SVT (supraventricular tachycardia) ([facility]) 05/05/2002 Sleep apnea 03/12/2006 Sleep apnea, obstructive Past Surgical History: Procedure Laterality Date ABLATE HEART DYSRHYTHM FOCUS 09/22/1998 COLONOSCOPY, DIAGNOSTIC (RECTUM) 09/30/2022 serrated adenomatous polyps, diverticulosis, repeat 5 yrs / COLONOSCOPY FLEXIBLE PROXIMAL DIAGNOSTIC performed by Dima Lara MD at ENDOSCOPY [facility] DENTAL SURGERY PROCEDURE NEC 09/22/1990 Dental Surgery Procedure INFORMATION 08/13/2004 umbilical hernia repair RADIAL KERATOTOMY 09/22/1997 [facility] REMOVAL OF ADENOIDS, UNDER AGE 12 age 6 VASECTOMY 12/26/2006 Review of patient's allergies indicates: No Known Allergies Family History Problem Relation Name Age of Onset Other (Pt denies significant fhx) Other Family Status Relation Status Mo Alive Fa Alive Sis Alive Sis Alive Sis Alive Bro Alive MGMA bone cancer? MGFA bone cancer? 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: [employer] Comment: [employer] Tobacco Use Smoking status: Former Current packs/day: 1.00 Average packs/day: 1 pack/day for 8.0 years (8.0 ttl pk-yrs) Types: Cigarettes Smokeless tobacco: Former Quit date: 09/22/1998 Tobacco comments: quit smoking 03/22/1998 Vaping Use Vaping status: Never Used Substance and Sexual Activity Alcohol use: Yes Alcohol/week: 6.0 standard drinks of alcohol Types: 6 12 oz of beer per week Comment: 4-6 beers per week Drug use: No Sexual activity: Yes Partners: Female control/protection: Surgical Other Topics Concern Not on file Social History Narrative 1 step child Cate Cary 1992 biological Damián 2001 from . Social Needs Financial Resource Strain: Not on file Food Insecurity: No Food Insecurity (04/24/2020) Hunger Vital Sign Worried About Running Out of Food in the Last Year: Never true Ran Out of Food in the Last Year: Never true Transportation Needs: Not on file Social Connections: Not on file Housing Stability: Not on file Review of Systems: As per HPI all other ROS negative. Wt Readings from Last 3 Encounters: 01/20/25 239 lb 2 oz (108.5 kg) 09/30/22 243 lb (110.2 kg) 05/09/22 243 lb 5 oz (110.4 kg) Results for orders placed or performed in visit on 01/14/25 BASIC METABOLIC PANEL Result Value Ref Range BUN 24 (H) 6 - 20 mg/dL CREATININE 1.0 0.6 - 1.2 mg/dL EGFR 88 >=60 mL/min SODIUM 132 (L) 135 - 146 mmol/L POTASSIUM 4.9 3.5 - 5.1 mmol/L CHLORIDE 93 (L) 98 - 107 mmol/L CO2 26 22 - 32 mmol/L ANION GAP 13 7 - 15 mmol/L GLUCOSE 637 (HH) 70 - 120 mg/dL CALCIUM 9.9 8.4 - 10.2 mg/dL ALBUMIN / CREATININE RATIO, URINE Result Value Ref Range Albumin, Random Urine 1.88 mg/dL Creatinine, Random Urine 32 mg/dL Albumin / Creatinine Ratio, Urine 59 (H) <30 mg/g Creat OBJECTIVE: Physical Exam: BP 110/73 | Pulse 87 | Temp 97 °F (36.1 °C) | Resp 16 | Wt 239 lb 2 oz (108.5 kg) | SpO2 97% | BMI 34.31 kg/m² | BSA 2.31 m² General: alert, healthy, and no distress Heart: regular rate & rhythm, no murmur, and no gallops Lungs: lungs clear to auscultation Abdomen: abdomen soft, non-tender, normal bowel sounds, and no masses or organomegaly Extremities: no joint deformities, effusion, or inflammation, no edema Hospital discharge follow-up (Primary) - DISCH MED RECON CUR MED LIS Need for ffosbgmnlk-valjehc-guhdyomlo (Tdap) vaccine - TDAP (AGE 7 AND OLDER), ADACEL Dyslipidemia, goal LDL below 130 - CBC WITH WBC DIFFERENTIAL; Future; Expected date: 04/22/2025 - COMPREHENSIVE METABOLIC PANEL; Future; Expected date: 04/22/2025 - TSH WITH FREE T4 IF INDICATED; Future; Expected date: 04/22/2025 - LIPID PANEL WITH DIRECT LDL IF TG IS HIGH; Future; Expected date: 04/22/2025 KRISHNA on CPAP HTN, goal below 140/90 - CBC WITH WBC DIFFERENTIAL; Future; Expected date: 04/22/2025 - COMPREHENSIVE METABOLIC PANEL; Future; Expected date: 04/22/2025 - TSH WITH FREE T4 IF INDICATED; Future; Expected date: 04/22/2025 - LIPID PANEL WITH DIRECT LDL IF TG IS HIGH; Future; Expected date: 04/22/2025 Type 2 diabetes mellitus with hemoglobin A1c goal of less than 7.0% (HCC) - HEMOGLOBIN A1C; Future; Expected date: 04/22/2025 - CBC WITH WBC DIFFERENTIAL; Future; Expected date: 04/22/2025 - COMPREHENSIVE METABOLIC PANEL; Future; Expected date: 04/22/2025 - TSH WITH FREE T4 IF INDICATED; Future; Expected date: 04/22/2025 - LIPID PANEL WITH DIRECT LDL IF TG IS HIGH; Future; Expected date: 04/22/2025 - ALBUMIN / CREATININE RATIO, URINE; Future; Expected date: 04/22/2025 Screening for prostate cancer - PSA; Future; Expected date: 04/22/2025 Follow Up: Return in about 3 months (around 04/22/2025), or if symptoms worsen or fail to improve, for Clinic Visit. | For: Clinic Visit | Check-out note: Cpe to re-est care Nimisha Smith DO * Dorcas Luna LPN - 01/20/2025 11:25 AM EDT Immunization Administration Documentation Time Out Procedure Performed: Yes Patient Identified (Ask Name/Date of ): Yes Does the patient have a fever greater than 101 degrees today? No Patient allergic to latex? No VFC Stock: No Immunization(s) verified: Yes, Immunization Name: Tdap (Boostrix), VIS Sheet(s) given: Yes Injection(s) verified: Yes, Injection Name: Tdap Verified Side and Site: Yes Verified Shot(s) with Parent(s)/Patient: Yes documented in this encounter Plan of Treatment Upcoming Encounters Date Type Department Care Team (Late st Contact Info) Description 04/22/2025 8:00 AM EDT Office Visit [facility] [address] [place] [id number] Nimisha Smith DO [address] [address] Scheduled Orders Name Type Priority Associated Diagnoses Orde r Schedule HEMOGLOBIN A1C Lab Routine Type 2 diabetes mellitus with hemoglobin A1c goal of less than 7.0% (HCC) Expected: 04/22/2025 (Approximate), Expires: 01/20/2026 CBC WITH WBC DIFFERENTIAL Lab Routine Dyslipidemia, goal LDL below 130 HTN, goal below 140/90 Type 2 diabetes mellitus with hemoglobin A1c goal of less than 7.0% (HCC) Expected: 04/22/2025 (Approximate), Expires: 01/20/2026 COMPREHENSIVE METABOLIC PANEL Lab Routine Dyslipidemia, goal LDL below 130 HTN, goal below 140/90 Type 2 diabetes mellitus with hemoglobin A1c goal of less than 7.0% (HCC) Expected: 04/22/2025 (Approximate), Expires: 01/20/2026 TSH WITH FREE T4 IF INDICATED Lab Routine Dyslipidemia, goal LDL below 130 HTN, goal below 140/90 Type 2 diabetes mellitus with hemoglobin A1c goal of less than 7.0% (HCC) Expected: 04/22/2025 (Approximate), Expires: 01/20/2026 LIPID PANEL WITH DIRECT LDL IF TG IS HIGH Lab Routine Dyslipidemia, goal LDL below 130 HTN, goal below 140/90 Type 2 diabetes mellitus with hemoglobin A1c goal of less than 7.0% (HCC) Expected: 04/22/2025 (Approximate), Expires: 01/20/2026 PSA Lab Routine Screening for prostate cancer Expected: 04/22/2025 (Approximate), Expires: 01/20/2026 ALBUMIN / CREATININE RATIO, URINE Lab Routine Type 2 diabetes mellitus with hemoglobin A1c goal of less than 7.0% (HCC) Expected: 04/22/2025 (Approximate), Expires: 01/20/2026 Scheduled Procedures Name Priority Associated Diagnoses Date/Ti me COLONOSCOPY FLEXIBLE PROXIMAL DIAGNOSTIC Recall History of colon polyps Health Maintenance Due Date Last Done Comments Depression Screening 1982 Hepatitis B Vaccine (1 of 3 - 19+ 3-dose series) 1989 Pneumococcal Vaccine: 50+ Years (1 of 2 - PCV) 1989 Cologuard 2015 Fecal Occult Blood Test 2015 Sigmoidoscopy 2015 Zoster Vaccines (1 of 2) 2020 COVID-19 Vaccine (2 - season) 2024 10/05/2021 Influenza Vaccine (FLU shot) (Season Ended) 2025 08/20/2011, 08/26/2001 GFR 01/14/2026 01/14/2025, 03/22, 07/19/2011, Additional history exists Lipid Panel 04/02/2027 04/02/2022, 07/23, 09/01/2013, Additional history exists Colonoscopy 09/30/2027 09/30/2022, 09/30/2022 Colorectal Cancer Screening 09/30/2027 Albumin/Creatinine Ratio 01/15/2028 01/14/2025 Diabetes Screening 01/15/2028 01/14/2025, 0 04/02/2022, 08/08/2017, Additional history exists DTap/Tdap Vaccines (3 - Td or Tdap) 01/20/2035 01/20/2025, 12/10/2010, 04/22/2005 Hepatitis C Screening Completed 06/07/2020 RETIRED - [...] as of this encounter Visit Diagnoses Diagnosis Hospital discharge follow-up- Primary Other follow-up examination Need for juuyakmtof-cjnfook-xgpdbvlyj (Tdap) vaccine Need for prophylactic vaccination with combined ppoqldkcoq-cofcudb-zncsxvrxr (DTP) vaccine Dyslipidemia, goal LDL below 130 Other and unspecified hyperlipidemia KRISHNA on CPAP Obstructive sleep apnea (adult) (pediatric) HTN, goal below 140/90 Unspecified essential hypertension Type 2 diabetes mellitus with hemoglobin A1c goal of less than 7.0% (HCC) Screening for prostate cancer Special screening for malignant neoplasm of prostate documented in this encounter Care Teams Outside Plant Cable Engineer Relationship Specialty Start Date End Date Nimisha Smith DO [address] [address] PCP - General Family Medicine 01/20/25 documented as of this encounter"
--- OUTSIDE RECORDS SUMMARY | 2025-01-23 15:33 | External Medical Summary | Summary of Care ---
Author Name Unknown Organization [facility] Address [address] [facility] [place] [address] Phone [phone] Care Team Providers Care Cell Lead Name Role Phone Unavailable Primary Care Provider Unavailabl e Encounter Details Date Type Department Care Team (Late st Contact Info) Description 01/14/2025 Refill Family Practice [facility] [address] [place] [phone] Nimisha Riley DO [address] [phone] HTN, goal below 140/90 Allergies No known active allergiesdocumented as of this encounter (statuses as of 01/14/2025) Medications CPAP every night at bedtime. Active Blood Pressure Cuff cHECK BLOOD PRESSURE DAILY AND RECORD 1 Each 3 Active Losartan Potassium 25 MG Oral Tablet (Cozaar)Indicat ions:HTN, goal below 140/90 Take 1 Tablet by mouth in the morning. 90 Tablet 5 Active Losartan Potassium 25 MG Oral Tablet (Cozaar)Indicat ions:HTN, goal below 140/90 Take 1 Tablet by mouth in the morning. 14 Tablet 01/14/2025 9:57 AM EDT 5 01/15/20 25 Discontinu ed(Refill) documented as of this encounter (statuses as of 01/14/2025) Active Problems Problem Noted Date Diagnosed Date HTN, goal below 140/90 05/09/2022 Dyslipidemia, goal LDL below 130 05/09/2022 Obesity, Class I, BMI 30.0-34.9 (see actual BMI) 07/16/2011 KRISHNA on CPAP 03/12/2006 Overview (04/02/2018): REMSTAR CFLEX AHP History of supraventricular tachycardia 05/05/20 02 Overview (05/05/2002): ablated at [facility] [place] documented as of this encounter (statuses as of 01/14/2025) Resolved Problems Problem Noted Date Diagnosed Date Resolved Date ADJ DISORDER W/DEPRES MOOD 08/22/2006 1 10/08/2016 documented as of this encounter (statuses as of 01/14/2025) Immunizations Name Administration Dates Next Due Covid-19 [...] 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 This bw was done today. Ordered by Jaimie. When results are back, and if ok, please send in enough BP med to get him to his February appt with Dr. Riley. Watch for bw results. documented in this encounter Plan of Treatment Upcoming Encounters Date Type Department Care Team (Late st Contact Info) Description 03/04/2025 8:00 AM EDT Office Visit Family Practice [facility] [address] [facility] [place] [phone] Nimisha Riley DO [address] [place] [phone] Scheduled Procedures Name Priority Associated Diagnoses Date/Ti [...] - Td or Tdap) 12/10/2020 12/10/2010, 04/22/2005 COVID-19 Vaccine (2 - season) 2024 10/05/2021 Influenza Vaccine (FLU shot) (Season Ended) 2025 08/20/2011, 08/26/2001 GFR 01/14/2026 01/14/2025, 03/22, 07/19/2011, Additional history exists Lipid Panel 04/02/2027 04/02/2022, 07/23, 09/01/2013, Additional history exists Colonoscopy 09/30/2027 09/30/2022, 09/30/2022 Colorectal Cancer Screening 09/30/2027 Albumin/Creatinine Ratio 01/15/2028 01/14/2025 Diabetes Screening 01/15/2028 01/14/2025, 0 04/02/2022, 08/08/2017, Additional history exists Hepatitis C Screening Completed 06/07/2020 RETIRED - [...]
[2025-01-23] MEDS: KETOROLAC TROMETHAMINE 15 MG/ML VIAL IV STA (16:22)
[2025-01-23] MEDS: MoRPHine SULFATE 4 MG/ML 1 ML CARP\\VIAL IV STA (16:22)
[2025-01-23] MEDS: SODIUM CHLORIDE 0.9% 500 ML IV STA (16:22)
[2025-01-23] MEDS: ONDANSETRON INJ 2 MG/ML 2 ML VIAL IV STA (16:22)
[2025-01-23] MEDS: HYDROmorphone INJ 1 MG/ML SYRINGE IV STA (16:38)
--- NOTE | 2025-01-23 16:47 | Emergency Department Note ---
Impression & Plan Acute left flank pain, Renal colic, Hydronephrosis, ALEX (acute kidney injury), Hematuria, Anemia ED Provider Note NAME: JAYE MARCOS AGE: 54 SEX: M : 1970 ARRIVES VIA: Walk-In INFORMANT: [Patient] ED PROVIDER(S): [Ted Kruger MD] CHIEF COMPLAINT: Flank pain HISTORY OF PRESENT ILLNESS: The patient is a 54-year-old male who states that 4 hours ago, he began having some pain in the left flank. The pain now wraps around to the left lower quadrant and left testicle. The pain has become severe. The patient has not had nausea or vomiting. He does feel the urge to urinate but cannot seem to go. No cough or congestion. No trauma. He has not had diarrhea. No chest pain. The patient was recently diagnosed with a high blood sugar, he was actually hospitalized. He has followed up with his doctors office since the hospitalization. Of note, a few days ago, the patient noticed some blood in the urine, this quickly resolved though and has not recurred. PMHx/PSHx/Social Hx: See Below PHYSICAL EXAM: GENERAL: Patient is in moderate distress from pain. At times yelling in pain. HEENT: No acute trauma, normocephalic atraumatic, mucous membranes moist, no nasal congestion. NECK: No stridor, no adenopathy, no meningismus, trachea is midline. LUNGS: Clear to auscultation bilaterally, no wheeze, no rhonchi, breath sounds equal. HEART: Without murmurs gallops or rubs, regular rate and rhythm. ABDOMEN: Soft, nontender, no peritonitis. EXTREMITIES: No cyanosis, full range of motion of all the joints without pain or difficulty. NEUROLOGIC: Oriented x 3, no acute motor or sensory deficits, no focal weakness. SKIN: No jaundice, no diaphoresis. DIFFERENTIAL DIAGNOSIS: Renal colic, aortic dissection, aneurysm, pyelonephritis, musculoskeletal pain, among others. EMERGENCY DEPARTMENT PROCEDURES: MEDICAL DECISION MAKING: There is no leukocytosis. Patient was somewhat anemic with a hemoglobin of 11.5. This was a drop in his hemoglobin when compared to previous testing. There was a normal platelet count. There was evidence for acute kidney injury with an elevation to his creatinine. No electrolyte abnormality in need of emergent correction. No concerning liver enzyme elevation. No evidence for pancreatitis. Urinalysis shows ketones consistent with dehydration. Hematuria was noted. There was no finding of infection. Calcium oxalate crystals were seen. Abdominal and pelvis CT shows left-sided hydronephrosis with a distal 3 mm ureteral stone. On exam, the patient was in significant discomfort. He was hypertensive. Patient received IV saline, 1.5 L. He received IV Zofran, IV morphine, IV Toradol. He eventually received IV Dilaudid for additional pain control. He was given oral Flomax to help with stone passage. Patient's pain is too severe to tolerate discharge. He will require hospitalization, IV pain control, IV hydration and monitoring. I did speak with the patient and case management, the on-call hospitalist was consulted. In short, the findings on CT imaging explain his presentation. Prior/Outside records/notes reviewed: Discharge summary note from 01/15/2025 describing his presentation, hospital course and plan at discharge. Imaging/x-ray results per my interpretation: Chronic Medical/Social conditions affecting care: Recent hospitalization. Care/Management discussed with: Case management, the on-call hospitalist. Level of care consideration(s): After review of the information above and other included data: --I believe the patient requires escalation of care to admission DISPOSITION: Admission Past Med/Surg History Problem List (Updated 01/23/25 @ 18:54 by Ted Kruger MD) Anemia (Acute) Hematuria (Acute) ALEX (acute kidney injury) (Acute) Hydronephrosis (Acute) Renal colic (Acute) Acute left flank pain (Acute) Polycystic kidney disease Obstructive uropathy Renal calculus, left DKA (diabetic ketoacidosis) (Acute) KRISHNA on CPAP HLD (hyperlipidemia) HTN (hypertension) Diabetes type 2 Social History Smoking Status: Never smoker Second Hand Exposure: No; Do You Dip or Chew Tobacco: No; Hx Alcohol Use: No Hx Substance Use: No Preferred Language: Sinhala Communication Ability: Effective Licensed Certified Orthotist Required: No Beliefs That Will Affect Care: None Current Living Situation: Spouse Feels Safe at Home: Yes Assistive Devices: None Allergies Allergies Allergy/AdvReac Type Severity Reaction Status Date / Time No Known Allergies Allergy Verified 01/14/25 16:11 Home Meds Previous Rx's Medication Instructions Recorded atorvastatin 80 mg tablet (Lipitor) 80 mg PO DAILY #30 tabs 01/15/25 blood sugar diagnostic (OneTouch #100 ea 01/15/25 Verio test strips) blood-glucose meter (OneTouch #1 ea 01/15/25 Ultra2 Meter) insulin glargine 100 unit/mL (3 10 unit (0.1 mL) subcut DAILY #15 01/15/25 mL) subcutaneous pen (Basaglar mL KwikPen U-100 Insulin) lancets 33 gauge (OneTouch Delica #100 ea 01/15/25 Plus Lancet) losartan 50 mg tablet 50 mg PO DAILY #30 tabs 01/15/25 metformin 500 mg tablet,extended 500 mg PO BID #60 tabs 01/15/25 release 24 hr pen needle, diabetic 31 gauge x #100 ea 01/15/25 1/" (Pen Needle) Results & Data (ED) Vital Signs Vital Signs - 24 hr 01/23/25 15:34 01/23/25 15:47 01/23/25 17:35 Temperature 36.8 C Temperature Source Temporal Artery Scan Pulse Rate 95 H Pulse Rate [Right Finger] 77 59 L Pulse Rhythm [Right Finger] Regular Regular Pulse Strength [Right Finger] Normal Normal Respiratory Rate 28 H 18 15 Respiratory Effort / Characteristics Non-Labored Non-Labored Respiratory Depth Normal Normal Respiratory Pattern Tachypnea Regular Regular Blood Pressure 183/120 H Blood Pressure [Right Arm] 179/115 H 169/93 H Blood Pressure Mean 141 Blood Pressure Mean [Right Arm] 136 118 Blood Pressure Position [Right Arm] Lying Lying Pulse Oximetry 96 100 97 Oxygen Delivery Method Room Air Room Air Room Air Sepsis Recent Fever Within 48 Hours No Sepsis New/Unexplained Change in Mental Status No Sepsis Action Taken by Nursing No Action Required Home Medications Current Medication List: was personally reviewed by me Laboratory Data Attestation: I reviewed the patient's lab results. 01/23/25 16:43 01/23/25 15:45 Lab Results 01/23/25 01/23/25 01/23/25 Range/Units 15:45 16:43 17:47 WBC Cancelled 6.76 RBC Cancelled 3.83 L Hgb Cancelled 11.5 L Hct Cancelled 32.7 L MCV Cancelled 85.4 MCH Cancelled 30.0 MCHC Cancelled 35.2 RDW Std Deviation Cancelled 37.8 RDW Coeff of Mp Cancelled 12.2 Plt Count Cancelled 176 MPV Cancelled 9.4 Immature Gran % (Auto) Cancelled 0.4 Neut % (Auto) Cancelled 83.9 Lymph % (Auto) Cancelled 8.6 [place] % (Auto) Cancelled 6.7 Eos % (Auto) Cancelled 0.3 Baso % (Auto) Cancelled 0.1 Neut # (Auto) Cancelled 5.67 Lymph # (Auto) Cancelled 0.58 L [place] # (Auto) Cancelled 0.45 Eos # (Auto) Cancelled 0.02 Baso # (Auto) Cancelled 0.01 Immature Gran # (Auto) Cancelled 0.03 Absolute Nucleated RBC Cancelled Nucleated RBC % (auto) Cancelled Neutrophils % (Manual) Cancelled Band Neutrophils % Cancelled Lymphocytes % (Manual) Cancelled Prolymphocyte % Cancelled Reactive Lymphs % (Man) Cancelled Monocytes % (Manual) Cancelled Eosinophils % (Manual) Cancelled Basophils % (Manual) Cancelled Metamyelocytes % (Man) Cancelled Myelocytes % (Man) Cancelled Promyelocytes % (Man) Cancelled Blast Cells % (Manual) Cancelled Plasma Cell % (Manual) Cancelled Other Cells % Cancelled Nucleated RBC % Cancelled Neutrophils # (Manual) Cancelled Band Neutrophils # Cancelled Total Absolute Neuts Cancelled Lymphocytes # (Manual) Cancelled Prolymphocyte # Cancelled Reactive Lymphs # Cancelled Total Abs Lymphocytes Cancelled Monocytes # (Manual) Cancelled Eosinophils # (Manual) Cancelled Basophils # (Manual) Cancelled Metamyelocytes # (Man) Cancelled Myelocytes # (Manual) Cancelled Promyelocytes # (Man) Cancelled Blast Cells # (Man) Cancelled Plasma Cell # (Manual) Cancelled Other Cells # Cancelled Nucleated RBCs # (Man) Cancelled Hypersegmented Neuts Cancelled Hyposegmented Neuts Cancelled Hypogranular Neuts Cancelled Large Granular Lymphs Cancelled # Lrg Granular Lymphs Cancelled Hairy Cells Cancelled Smudge Cells Cancelled Toxic Granulation Cancelled Toxic Vacuolation Cancelled Dohle Bodies Cancelled Guido Rods Cancelled Platelet Estimate Cancelled Hypogranular Platelets Cancelled Giant Platelets Cancelled Platelet Satelliting Cancelled RBC Morphology Cancelled Polychromasia Cancelled Hypochromasia Cancelled Poikilocytosis Cancelled Basophilic Stippling Cancelled Anisocytosis Cancelled Microcytosis Cancelled Macrocytosis Cancelled Spherocytes Cancelled Pappenheimer Bodies Cancelled Sickle Cells Cancelled Target Cells Cancelled Tear Drop Cells Cancelled Ovalocytes Cancelled Stomatocytes Cancelled [place] Bodies Cancelled Echinocytes Cancelled Acanthocytes (Spur) Cancelled Rouleaux Cancelled RBC Agglutinates Cancelled Schistocytes Cancelled [place] Cell Cancelled Sodium 134 L (136-145) mmol/L Potassium 3.7 (3.5-5.1) mmol/L Chloride 100 (98-107) mmol/L Carbon Dioxide 21 (21-32) mmol/L Anion Gap 13 H (3-11) BUN 35 H (6-23) mg/dl Creatinine 1.76 H (0.6-1.4) mg/dl Est Cr Clr Drug Dosing 59.5 ml/min eGFR 45.38 BUN/Creatinine Ratio 19.9 (10-20) Glucose 164 H (70-99(Fasting)) mg/dl Calcium 10.0 (8.6-10.3) mg/dl Total Bilirubin 0.7 (0.2-1.0) mg/dl AST 25 (13-39) U/L ALT 37 (7-52) U/L Alkaline Phosphatase 73 (34-104) U/L Total Protein 7.6 (6.0-8.3) gm/dl Albumin 4.6 (3.4-5.0) gm/dl Globulin 3.0 (2.5-4.0) gm/dl Albumin/Globulin Ratio 1.5 (0.9-2) Lipase 36 (11-82) U/L Urine Color Yellow Urine Appearance Clear (Clear) Urine pH 5.0 (4.5-7.5) Ur Specific [place] 1.023 (1.000-1.030) Urine Protein Trace H (Negative) Urine Glucose (UA) Trace H (Negative) Urine Ketones 2+ H (Negative) Urine Blood 3+ H (Negative) Urine Nitrite Negative (Negative) Urine Bilirubin Negative (Negative) Urine Urobilinogen Negative (Negative) Ur Leukocyte Esterase Negative (Negative) Urine WBC (Auto) 0-5 (0-5) /hpf Urine RBC (Auto) >20 H (0-2) /hpf U Hyaline Cast (Auto) 6-10 H (0-2) /lpf U Epithel Cells (Auto) 0-2 (0-2) /hpf Urine Bacteria (Auto) None Seen (None Seen) Calcium Oxalate Crystal Present A (None Prsent) Blood Parasites ID Cancelled Administered Medications Discontinued Medications Hydromorphone HCl (Hydromorphone Inj 1 Mg/Ml Syringe) 1 mg IV NOW STA Stop: 01/23/25 16:29 Last Admin: 01/23/25 16:38 Dose: 1 mg Documented By: IRINEO Sodium Chloride (Nss) 500 mls @ 999 mls/hr IV .Q31M STA Stop: 01/23/25 16:40 Last Infusion: 01/23/25 17:18 Dose: Infused Documented By: Admin: 01/23/25 16:22 Dose: 999 mls/hr Documented By: IRINEO Sodium Chloride (Nss) 1,000 mls @ 999 mls/hr IV .Q1H1M ONE Stop: 01/23/25 18:00 Last Admin: 01/23/25 17:06 Dose: 999 mls/hr Documented By: IRINEO Ketorolac Tromethamine (Ketorolac Tromethamine 15 Mg/Ml Vial) 15 mg IV NOW STA Stop: 01/23/25 16:11 Last Admin: 01/23/25 16:22 Dose: 15 mg Documented By: IRINEO Morphine Sulfate (Morphine Sulfate 4 Mg/Ml 1 Ml Carp\\Vial) 4 mg IV NOW STA Stop: 01/23/25 16:11 Last Admin: 01/23/25 16:22 Dose: 4 mg Documented By: IRINEO Ondansetron HCl (Ondansetron Inj 2 Mg/Ml 2 Ml Vial) 4 mg IV NOW STA Stop: 01/23/25 16:11 Last Admin: 01/23/25 16:22 Dose: 4 mg Documented By: IRINEO Imaging Data Radiologist's Impression: Abdomen/Pelvis CT 01/23/25 16:10 EXAMINATION: Abdomen and pelvis CT without CLINICAL HISTORY: Left-sided abdominal pain, rating aiding to hip and testicle, severe PRIORS: None TECHNIQUE: Contiguous axial images were obtained through the abdomen and pelvis without the use of intravenous contrast. Sagittal and coronal reformations are supplied. FINDINGS: Hypoventilatory changes noted at the lung bases. Fatty infiltration of the liver present. Noncontrast enhanced gallbladder, pancreas, spleen, stomach, adrenals, aorta and IVC are morphologically unremarkable. Innumerable bilateral low-attenuation renal lesions., Likely cysts. An obstructing left renal calculus present in the distal ureter, image 335, series 4 measuring 3 mm located approximately 3 cm from the ureteral vesicular junction. Mild hydronephrosis and hydroureter is present with mild left perinephric and periureteral fat stranding. Mildly edematous appearance of the left kidney noted. Right kidney shows no obstructing calculus. No adenopathy or extraluminal gas. Moderate amount of formed stool in the colon. Appendix is normal. No free fluid in the pelvis. Urinary bladder rightly distended and morphologically unremarkable. Coarse calcifications of the prostate. Prostate normal in size. In bone windows, no acute osseous abnormality. Moderate to advanced facet hypertrophic changes at L4-L5 and L5-S1. IMPRESSION: 1. Obstructing left renal calculus, measuring 3 mm, in the distal ureter with mild hydronephrosis, hydroureter, perinephric and periureteral fat stranding. 2. Multiple bilateral probable renal cysts. Please correlate if there is history of Polycystic Kidney Disease. 3. Fatty infiltration of the liver. ACT 112: Positive. There are findings on this examination that require communication between the performing entity and the patient following Patient Test Result Information Act ([place] ACT 112) guidelines. Electronically signed by Jagruti Ingram 01-23-2025 6:16 PM Discharge Plan Visit Data Chief Complaint: Flank Pain Stated Complaint: KIDNEY PAIN ED Provider: Ted Kruger Discharge Problem: Acute left flank pain, Renal colic, Hydronephrosis, ALEX (acute kidney injury), Hematuria, Anemia Patient Disposition: Admitted As Inpatient Condition: Fair Forms Stand Alone Forms: My [facility] [employer] Prescriptions Prescriptions: No Action (DME) blood-glucose meter [OneTouch Ultra2 Meter] [facility] See Rx Instructions .Route Qty: 1 0RF Rx Instructions: As directed (DME) OneTouch Verio test strips Strip See Rx Instructions .Route Qty: 100 0RF Rx Instructions: As directed (DME) lancets [OneTouch Delica Plus Lancet] 33 gauge misc See Rx Instructions .Route Qty: 100 0RF Rx Instructions: As directed insulin glargine [Basaglar KwikPen U-100 Insulin] 100 unit/mL (3 mL) insulin pen 10 unit subcut DAILY Qty: 15 0RF (DME) pen needle, diabetic [Pen Needle] 31 gauge x 1/4" needle See Rx Instructions .Route Qty: 100 0RF Rx Instructions: As directed losartan 50 mg tablet 50 mg PO DAILY Qty: 30 0RF atorvastatin [Lipitor] 80 mg tablet 80 mg PO DAILY Qty: 30 0RF metformin 500 mg tablet extended release 24 hr 500 mg PO BID Qty: 60 0RF Referrals Referrals: Nimisha Riley DO [Primary Care Provider] - Discharge Problem: Hydronephrosis Qualifiers: Hydronephrosis type: with renal calculous obstruction Qualified Code(s): N13.2 - Hydronephrosis with renal and ureteral calculous obstruction Hematuria Qualifiers: Hematuria type: benign essential microscopic Qualified Code(s): R31.1 - Benign essential microscopic hematuria Anemia Qualifiers: Anemia type: unspecified type Qualified Code(s): D64.9 - Anemia, unspecified
[2025-01-23 16:53] LABS: Albumin Globulin Ratio 1.5 (0.9-2); Albumin Level 4.6 gm/dl (3.4-5.0); BUN Creatinine Ratio 19.9 (10-20); Bilirubin,Total 0.7 mg/dl (0.2-1.0); Creatinine Clr Calc Pharmacy 59.5 ml/min; Potassium 3.7 mmol/L (3.5-5.1); Total Protein 7.6 gm/dl (6.0-8.3)
[2025-01-23] MEDS: SODIUM CHLORIDE 0.9% 1,000 ML IV ONE (17:06)
[2025-01-23 17:39] LABS: Basophils # (auto) 0.01 K/uL (0.00-0.20); Basophils % (auto) 0.1 %; Eosinophils # (auto) 0.02 K/uL (0.00-0.50); Eosinophils % (auto) 0.3 %; Hematocrit (blood only) 32.7 % (42.0-52.0); Hemoglobin 11.5 g/dl (14.0-18.0); Immature Granulocytes # (auto) 0.03 K/uL (0.01-0.20); Immature Granulocytes % (auto) 0.4 %; Lymphocytes # (auto) 0.58 K/uL (1.20-3.40); Lymphocytes % (auto) 8.6 %; Mean Corpuscular Hgb Conc 35.2 g/dL (32.0-36.0); Mean Corpuscular Volume 85.4 fL (80.0-100.0); Mean Platelet Volume 9.4 fL (9.4-12.4); Monocytes # (auto) 0.45 K/uL (0.11-0.59); Monocytes % (auto) 6.7 %; Neutrophils # (auto) 5.67 K/uL (1.40-6.50); Neutrophils % (auto) 83.9 %; Platelet Count 176 K/uL (130-400); RDW Coefficient of Variation 12.2 % (11.5-14.5); RDW Standard Deviation 37.8 fL (36.4-46.3); Red Blood Count 3.83 M/uL (4.70-6.10); White Blood Count 6.76 K/ul (4.8-10.8)
--- NOTE | 2025-01-23 18:17 | CT Scan Report ---
EXAMINATION: Abdomen and pelvis CT without CLINICAL HISTORY: Left-sided abdominal pain, rating aiding to hip and testicle, severe PRIORS: None TECHNIQUE: Contiguous axial images were obtained through the abdomen and pelvis without the use of intravenous contrast. Sagittal and coronal reformations are supplied. FINDINGS: Hypoventilatory changes noted at the lung bases. Fatty infiltration of the liver present. Noncontrast enhanced gallbladder, pancreas, spleen, stomach, adrenals, aorta and IVC are morphologically unremarkable. Innumerable bilateral low-attenuation renal lesions., Likely cysts. An obstructing left renal calculus present in the distal ureter, image 335, series 4 measuring 3 mm located approximately 3 cm from the ureteral vesicular junction. Mild hydronephrosis and hydroureter is present with mild left perinephric and periureteral fat stranding. Mildly edematous appearance of the left kidney noted. Right kidney shows no obstructing calculus. No adenopathy or extraluminal gas. Moderate amount of formed stool in the colon. Appendix is normal. No free fluid in the pelvis. Urinary bladder rightly distended and morphologically unremarkable. Coarse calcifications of the prostate. Prostate normal in size. In bone windows, no acute osseous abnormality. Moderate to advanced facet hypertrophic changes at L4-L5 and L5-S1. IMPRESSION: 1. Obstructing left renal calculus, measuring 3 mm, in the distal ureter with mild hydronephrosis, hydroureter, perinephric and periureteral fat stranding. 2. Multiple bilateral probable renal cysts. Please correlate if there is history of Polycystic Kidney Disease. 3. Fatty infiltration of the liver. ACT 112: Positive. There are findings on this examination that require communication between the performing entity and the patient following Patient Test Result Information Act ([place] ACT 112) guidelines. Electronically signed by Jagruti Ingram 01-23-2025 6:16 PM
[2025-01-23 18:22] LABS: Appearance Urine Clear (Clear); Bacteria Urine Automated None Seen (None Seen); Bilirubin Urine Negative (Negative); Blood Urine 3+ (Negative); Calcium Oxalate Crystals Urine Present (None Prsent); Color Urine Yellow; Epithelial Cell Urine Auto 0-2 /hpf (0-2); Glucose Urine UA Trace (Negative); Ketones Urine 2+ (Negative); Leukocyte Esterase Urine Negative (Negative); Nitrite Urine Negative (Negative); Protein Urine Trace (Negative); RBC Urine Automated >20 /hpf (0-2); Specific Gravity Urine 1.023 (1.000-1.030); Urobilinogen Urine Negative (Negative); WBC Urine Automated 0-5 /hpf (0-5)
--- NOTE | 2025-01-23 18:52 | History & Physical Report ---
Date of Service January 23, 2025 Assessment & Plan (1) Renal calculus, left: (2) Obstructive uropathy: (3) Diabetes type 2: (4) HTN (hypertension): (5) HLD (hyperlipidemia): (6) KRISHNA on CPAP: Plan Obstructive uropathy Obstructive left renal calculus Mild hydronephrosis, Hydroureter, perinephritic and periureteral fat stranding - concerning for pyelonephritis Multiple bilateral renal cysts are probable, need to discuss if history of polycystic kidney disease ALEX - Admit to MedSurg - continue IV fluids, flomax daily, pyridium prn- Pain control- percocet and MS 4 mg IV Q6H prn, bowel regimen ordered - BUN 35, creatinine 1.76 - Urology consulted for possible stent placement with obstruction - CT abd reviewed as above showin. Obstructing left renal calculus, measuring 3 mm, in the distal ureter with mild hydronephrosis, hydroureter, perinephric and periureteral fat stranding. 2. Multiple bilateral probable renal cysts. Please correlate if there is history of Polycystic Kidney Disease. 3. Fatty infiltration of the liver. - Will order BCx x 2 and start IV ceftriaxone 2g IV for possible pyelonephritis - NPO at midnight in case needs for procedure, allow full liquid diet for now - Fall precautions/assist with ambulation due to narcotic pain meds DM type II - Most recent A1c is 12.9 Started on insulin glargine 12 units this morning, if below 200 then takes 10 U - Holding metformin -- pt reports having diarrhea last week and says he thought it was due to atorvastatin and that dose was reduced from 80 to 40. Consider that this is really due to metformin. Further pt discussion to be held regarding continued compliance - Encourage diet and exercise throughout stay Hypertensive Urgency HTN - Losartan 50 mg once daily, will also add hydralazine PRN for hypertensive urgency HLD - significant elevation in triglycerides of over 600, total cholesterol over 230, can be followed up by PCP - Pt has been seen by PCP last - atorvastatin was decreased from 80 to 40 mg daily DVT ppx: scds,no chemical ppx due to transient hematuria noted on 5/ Lines: PIV x 1 FEN/GI: Full liquid diet, diabetic CODE: Full code Dispo: From home, likely to remain in the hospital x 1-2 days I spent a total of 75 minutes with greater than 50% of that time face to face with the patient, personally reviewing all current laboratories, imaging studies, past medication reconciliation, outpatient chart review, and discussion with specialists to collaborate care for the patient excluding time spent in the performance of separately billed services or time spent by another provider/QHP. Please see attending documentation for corrections and/or additions. History of Present Illness Chief Complaint: Flank pain Primary Care Provider: Nimisha Riley DO This is a 54-year-old male with a past medical history of KRISHNA on CPAP, HTNuncontrolled, noncompliance, HLD (previous refusal of statin), recently admitted on 01/14/25- 01/15/25 for uncontrolled hyperglycemia requiring insulin gtt and new diagnosis of uncontrolled DM II with A1C of 12.9. His losartan was increased to 50 mg once daily. He was also noted to have hypertirglyceridemia with level of 676, total cholesterol elevated at 238 and was started on high dose statin therapy. Today the patient presents to the hospital with acute left-sided flank and LLQ pain into the left testicle, rating it is severe. Denies nausea or vomiting. Feels the urge to urinate but cannot seem to go. He has noticed small amount of blood in the urine on Friday x 3 within 2 hours, had no pain at that time, this resolved quickly and has not recurred. He did get a Flipaste mychart response after that timeframe. He was traveling from [facility] this morning, and noticed left sided flank pain which extended to LLQ and into the Left groin. No diarrhea no flatus. Reported pain was 10/10 earlier, admitted to sweats and chills. He states pain medications have helped, occasionally has left flank pain, currently states pain is 5/10. In the ER patient was started on IV fluids, Flomax, Toradol 15 mg x 1, morphine sulfate 4 mg x 1 and Dilaudid 1.5 mg total for pain already given. prn meds ordered. His was present at bedside and supports the history. Allergies Allergy/AdvReac Type Severity Reaction Status Date / Time No Known Allergies Allergy Verified 01/14/25 16:11 Home Medications Medication Instructions Recorded Confirmed Type blood sugar diagnostic (Buxferuch #100 ea 01/15/25 Rx Verio test strips) blood-glucose meter (YoungCracksTouch #1 ea 01/15/25 Rx Ultra2 Meter) lancets 33 gauge (OneTouch Delica #100 ea 01/15/25 Rx Plus Lancet) losartan 50 mg tablet 50 mg PO DAILY #30 tabs 01/15/25 01/23/25 Rx metformin 500 mg tablet,extended 500 mg PO BID #60 tabs 01/15/25 01/23/25 Rx release 24 hr pen needle, diabetic 31 gauge x #100 ea 01/15/25 Rx 1/4" (Pen Needle) atorvastatin 80 mg tablet (Lipitor) 40 mg PO DAILY 01/23/25 01/23/25 History insulin glargine 100 unit/mL (3 10 - 12 unit subcut DAILY 01/23/25 01/23/25 History mL) subcutaneous pen (Basaglar KwikPen U-100 Insulin) Past Med/Surg History Problem List (Updated 01/23/25 @ 19:19 by Carmelita Snow PA-C) Anemia (Acute) Hematuria (Acute) ALEX (acute kidney injury) (Acute) Hydronephrosis (Acute) Renal colic (Acute) Acute left flank pain (Acute) Obstructive uropathy Renal calculus, left DKA (diabetic ketoacidosis) (Acute) KRISHNA on CPAP HLD (hyperlipidemia) Medical History (Updated 01/23/25 @ 19:19 by Carmelita Snow PA-C) History of cardiac dysrhythmia HTN (hypertension) Diabetes type 2 Surgical History (Updated 01/23/25 @ 19:19 by Carmelita Snow PA-C) Hx of umbilical hernia repair H/O adenoidectomy Hx of vasectomy Hx of colonoscopy Social History Smoking Status: Never smoker Second Hand Exposure: No; Do You Dip or Chew Tobacco: No; Hx Alcohol Use: No Hx Substance Use: No Preferred Language: [place] Communication Ability: Effective 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 Beliefs That Will Affect Care: None Current Living Situation: Spouse Feels Safe at Home: Yes Assistive Devices: None Review of Systems Review of Systems: Constitutional: No fever, sweats or chills Eyes: No diplopia, no worsening or blurred vision ENT: normal hearing, no trouble swallowing Respiratory: No cough, sputum, dyspnea at rest or on exertion Cardiovascular: No chest pain, tightness or palpitations Abdomen: As per HPI with significant LLQ and left flank pain, improved at this time, no vomiting, diarrhea or constipation Musculoskeletal: No joint pain, calf pain, swelling Neurologic: No weakness, numbness/tingling, or balance problems Psychiatric: No anxiety or depression Skin: No rash or itch Physical Exam Physical Exam: General: awake, alert, no apparent distress, white male Head: Normocephalic, atraumatic ENT: PERRL, EOMI, no pharyngeal exudate, mucous membranes moist Chest: Clear to auscultation, on room air, no adventitious breath sounds Cardiac: Regular rate and rhythm, no murmur, no JVD, normal peripheral pulses, good capillary refill Abdominal: NABS x 4 quadrants, soft, nondistended, + LLQ pain with palpation, no rebound or guarding Back : + CVA tenderness left flank region Extremities: Normal inspection, no peripheral edema or erythema, calfs nontender to palpation Psych: Normal mood and affect Neuro: AAO x 3, strength intact bilaterally and rated 5/5, no motor deficits, speech is clear, no peripheral sensory deficits Results & Data Results & Data Vital Signs (Past 12 Hours) Vital Signs Temp Pulse Pulse Resp BP BP Pulse Ox 01/23/25 17:35 59 L 15 169/93 H 97 01/23/25 15:47 77 18 179/115 H 100 01/23/25 15:34 36.8 C 95 H 28 H 183/120 H 96 O2 Del Method 01/23/25 17:35 Room Air 01/23/25 15:47 Room Air 01/23/25 15:34 Room Air Laboratory Results 01/23/25 01/23/25 01/23/25 17:47 16:43 15:45 WBC 6.76 Cancelled RBC 3.83 L Cancelled Hgb 11.5 L Cancelled Hct 32.7 L Cancelled MCV 85.4 Cancelled MCH 30.0 Cancelled MCHC 35.2 Cancelled RDW Std Deviation 37.8 Cancelled RDW Coeff of Mp 12.2 Cancelled Plt Count 176 Cancelled MPV 9.4 Cancelled Immature Gran % (Auto) 0.4 Cancelled Neut % (Auto) 83.9 Cancelled Lymph % (Auto) 8.6 Cancelled [place] % (Auto) 6.7 Cancelled Eos % (Auto) 0.3 Cancelled Baso % (Auto) 0.1 Cancelled Neut # (Auto) 5.67 Cancelled Lymph # (Auto) 0.58 L Cancelled [place] # (Auto) 0.45 Cancelled Eos # (Auto) 0.02 Cancelled Baso # (Auto) 0.01 Cancelled Immature Gran # (Auto) 0.03 Cancelled Absolute Nucleated RBC Cancelled Nucleated RBC % (auto) Cancelled Neutrophils % (Manual) Cancelled Band Neutrophils % Cancelled Lymphocytes % (Manual) Cancelled Prolymphocyte % Cancelled Reactive Lymphs % (Man) Cancelled Monocytes % (Manual) Cancelled Eosinophils % (Manual) Cancelled Basophils % (Manual) Cancelled Metamyelocytes % (Man) Cancelled Myelocytes % (Man) Cancelled Promyelocytes % (Man) Cancelled Blast Cells % (Manual) Cancelled Plasma Cell % (Manual) Cancelled Other Cells % Cancelled Nucleated RBC % Cancelled Neutrophils # (Manual) Cancelled Band Neutrophils # Cancelled Total Absolute Neuts Cancelled Lymphocytes # (Manual) Cancelled Prolymphocyte # Cancelled Reactive Lymphs # Cancelled Total Abs Lymphocytes Cancelled Monocytes # (Manual) Cancelled Eosinophils # (Manual) Cancelled Basophils # (Manual) Cancelled Metamyelocytes # (Man) Cancelled Myelocytes # (Manual) Cancelled Promyelocytes # (Man) Cancelled Blast Cells # (Man) Cancelled Plasma Cell # (Manual) Cancelled Other Cells # Cancelled Nucleated RBCs # (Man) Cancelled Hypersegmented Neuts Cancelled Hyposegmented Neuts Cancelled Hypogranular Neuts Cancelled Large Granular Lymphs Cancelled # Lrg Granular Lymphs Cancelled Hairy Cells Cancelled Smudge Cells Cancelled Toxic Granulation Cancelled Toxic Vacuolation Cancelled Dohle Bodies Cancelled Guido Rods Cancelled Platelet Estimate Cancelled Hypogranular Platelets Cancelled Giant Platelets Cancelled Platelet Satelliting Cancelled RBC Morphology Cancelled Polychromasia Cancelled Hypochromasia Cancelled Poikilocytosis Cancelled Basophilic Stippling Cancelled Anisocytosis Cancelled Microcytosis Cancelled Macrocytosis Cancelled Spherocytes Cancelled Pappenheimer Bodies Cancelled Sickle Cells Cancelled Target Cells Cancelled Tear Drop Cells Cancelled Ovalocytes Cancelled Stomatocytes Cancelled [place] Air Bodies Cancelled Echinocytes Cancelled Acanthocytes (Spur) Cancelled Rouleaux Cancelled RBC Agglutinates Cancelled Schistocytes Cancelled Sezary Cell Cancelled Sodium 134 L Potassium 3.7 Chloride 100 Carbon Dioxide 21 Anion Gap 13 H BUN 35 H Creatinine 1.76 H Est Cr Clr Drug Dosing 59.5 eGFR 45.38 BUN/Creatinine Ratio 19.9 Glucose 164 H Calcium 10.0 Total Bilirubin 0.7 AST 25 ALT 37 Alkaline Phosphatase 73 Total Protein 7.6 Albumin 4.6 Globulin 3.0 Albumin/Globulin Ratio 1.5 Lipase 36 Urine Color Yellow Urine Appearance Clear Urine pH 5.0 Ur Specific Brock 1.023 Urine Protein Trace H Urine Glucose (UA) Trace H Urine Ketones 2+ H Urine Blood 3+ H Urine Nitrite Negative Urine Bilirubin Negative Urine Urobilinogen Negative Ur Leukocyte Esterase Negative Urine WBC (Auto) 0-5 Urine RBC (Auto) >20 H U Hyaline Cast (Auto) 6-10 H U Epithel Cells (Auto) 0-2 Urine Bacteria (Auto) None Seen Calcium Oxalate Crystal Present A Blood Parasites ID Cancelled Diagnostic Findings Abdomen/Pelvis CT 01/23/25 16:10 EXAMINATION: Abdomen and pelvis CT without CLINICAL HISTORY: Left-sided abdominal pain, rating aiding to hip and testicle, severe PRIORS: None TECHNIQUE: Contiguous axial images were obtained through the abdomen and pelvis without the use of intravenous contrast. Sagittal and coronal reformations are supplied. FINDINGS: Hypoventilatory changes noted at the lung bases. Fatty infiltration of the liver present. Noncontrast enhanced gallbladder, pancreas, spleen, stomach, adrenals, aorta and IVC are morphologically unremarkable. Innumerable bilateral low-attenuation renal lesions., Likely cysts. An obstructing left renal calculus present in the distal ureter, image 335, series 4 measuring 3 mm located approximately 3 cm from the ureteral vesicular junction. Mild hydronephrosis and hydroureter is present with mild left perinephric and periureteral fat stranding. Mildly edematous appearance of the left kidney noted. Right kidney shows no obstructing calculus. No adenopathy or extraluminal gas. Moderate amount of formed stool in the colon. Appendix is normal. No free fluid in the pelvis. Urinary bladder rightly distended and morphologically unremarkable. Coarse calcifications of the prostate. Prostate normal in size. In bone windows, no acute osseous abnormality. Moderate to advanced facet hypertrophic changes at L4-L5 and L5-S1. IMPRESSION: 1. Obstructing left renal calculus, measuring 3 mm, in the distal ureter with mild hydronephrosis, hydroureter, perinephric and periureteral fat stranding. 2. Multiple bilateral probable renal cysts. Please correlate if there is history of Polycystic Kidney Disease. 3. Fatty infiltration of the liver. ACT 112: Positive. There are findings on this examination that require communication between the performing entity and the patient following Patient Test Result Information Act ([place] ACT 112) guidelines. Electronically signed by Jagruti Ingram 01-23-2025 6:16 PM Code Status & VTE Plan Code Status Full code Supervising Physician Co-Signing Physician Notes Patient is a 54-year-old male with history of KRISHNA on CPAP, hypertension, hyperlipidemia and recently diagnosed diabetes mellitus presents with history of worsening left flank pain radiating down lower abdomen, groin/testicular region since this afternoon. Patient admits to have transient hematuria 3 days ago and feels having chills. Denies any chest pain, dyspnea, nausea, vomiting. Please review HPI for complete details of presentation. I personally reviewed blood work and imaging studies. Creatinine elevated at 1.76, hemoglobin 11.5, hematocrit 32.7, sodium 134, BUN 35, glucose 164.Urine analysis showed hematuria, trace glucose and ketonuria. CT abdomen showed obstructing left renal calculus measuring 3 mm in the distal ureter with mild hydronephrosis, hydroureter and perinephric and periureteral fat stranding. Also noted multiple bilateral probable renal cysts. Physical Exam: Vitals signs as noted above General Appearance: Obese, no apparent distress Head: normocephalic, Atraumatic Eyes: normal inspection, EOMI Neck: supple, Trachea midline Respiratory/Chest: Normal breath sounds, CTA, No accessory muscle use Cardiovascular: S1, S2, No murmur Abdomen/GI:Soft, left flank tender, Bowel sounds present Extremities/Musculoskeletal:normal inspection, no edema Neurologic/Psych:AAOX3, grossly no focal neurological deficits Skin: normal color, warm Left renal calculus with Obstructive uropathy Possible complicated UTI Hypertensive urgency likely situational secondary to pain Suspected polycystic kidney disease Diabetes mellitus type 2, hypertension, hyperlipidemia Will start IV fluids, pain control, Flomax, urine strain Empirically started on IV Rocephin Continue home antidiabetics, IV hydralazine as needed Urology consulted N.p.o. after midnight for possible procedure SCDs for DVT prophylaxis given hematuria I personally interviewed and examined the patient at bedside. I have reviewed the advanced practitioner's documentation on the date of service referred in note and agree with plan. Patient's care is coordinated with Carmelita mcghee PA-C. Please refer to the documentation above for details of patient's presentation and for discussion of other issues. I spent a total [id number] coordinating, documenting, and providing care for this patient excluding time spent in the performance of separately billed services or time spent by another provider/QHP.
[2025-01-23] MEDS: HYDROmorphone INJ 0.5 MG/0.5 ML SYR IV STA (19:19)
[2025-01-23] MEDS: TAMSULOSIN HCL 0.4 MG CAP PO ONE (19:19)
--- NOTE | 2025-01-23 20:08 | Urology Consultation ---
Date of Consultation January 23, 2025 Assessment & Plan (1) Renal calculus, left: The patient is being admitted under hospitalist service. From a urologic perspective we recommend the following: Provide analgesics Provide antiemetics as needed Provide IV fluid for hydration Flomax has been initiated for expulsive therapy and this should continue Recommend avoiding nephrotoxins due to the patient's elevated creatinine Patient is currently nontoxic-appearingshe is normotensive without tachyca rdia or fever. He also does not have leukocytosis or signs of urinary tract infection on his urinalysis. Therefore I feel a trial of conservative passage is warranted, particular due to the small size of the patient's kidney stone. Would recommend making the patient n.p.o. after midnight tonight. He will be reevaluated by urology the morning of 01/24/2025 and a determination be made if the patient requires cystoscopic intervention Additional recommendations be forthcoming based on his clinical course as are both History of Present Illness Reason for Consultation: Nephrolithiasis History of Present Illness This is a 54-year-old male who presented to the emergency department secondary to left-sided flank pain. Patient does report that a few days ago he had some hematuria which has since resolved. Earlier today though the patient developed left-sided flank pain with some radiation to his abdomen. He did not report any nausea or vomiting. He denies any fevers, shakes, or chills. He notes he is urinating without difficulty. He does not follow regularly with a urologist and he has never had a kidney stone in the past. Since arrival to the hospital this patient has had labs and imaging which independent reviewed. A CT scan of the abdomen pelvis showed the patient had an obstructing 3 mm left-sided renal kidney stone which was located in the distal ureter resulting in mild hydronephrosis. Patient was also noted have multiple bilateral renal cysts. Labs including CBC were white blood cell count platelet count were normal. Hemoglobin and hematocrit were 11.5 and 32.7. Chemistry profile showed sodium is 134 with a potassium of 3.7. BUN and creatinine were 35 and 1.7. Urinalysis was not indicative of infection. At the time of my interview he was resting comfortably in bed he was in no distress. Allergies Allergy/AdvReac Type Severity Reaction Status Date / Time No Known Allergies Allergy Verified 01/14/25 16:11 Home Medications Medication Instructions Recorded Confirmed Type blood sugar diagnostic ([place] [employer]Touch #100 ea 01/15/25 Rx Verio test strips) blood-glucose meter (OneTouch #1 ea 01/15/25 Rx Ultra2 Meter) lancets 33 gauge (OneTouch Delica #100 ea 01/15/25 Rx Plus Lancet) losartan 50 mg tablet 50 mg PO DAILY #30 tabs 01/15/25 01/23/25 Rx metformin 500 mg tablet,extended 500 mg PO BID #60 tabs 01/15/25 01/23/25 Rx release 24 hr pen needle, diabetic 31 gauge x #100 ea 01/15/25 Rx 1/4" (Pen Needle) atorvastatin 80 mg tablet (Lipitor) 40 mg PO DAILY 01/23/25 01/23/25 History insulin glargine 100 unit/mL (3 10 - 12 unit subcut DAILY 01/23/25 01/23/25 History mL) subcutaneous pen (Basaglar KwikPen U-100 Insulin) Patient History Medical History History of cardiac dysrhythmia HTN (hypertension) Diabetes type 2 Surgical History Hx of umbilical hernia repair H/O adenoidectomy Hx of vasectomy Hx of colonoscopy Social History Smoking Status: Never smoker Second Hand Exposure: No; Do You Dip or Chew Tobacco: No; Hx Alcohol Use: No Hx Substance Use: No Preferred Language: Turkish Communication Ability: Effective 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 Beliefs That Will Affect Care: None Current Living Situation: Spouse Feels Safe at Home: Yes Assistive Devices: None Review of Systems Review of Systems: All systems reviewed & are unremarkable except as noted in HPI & below Physical Exam Constitutional: WD/WN, vitals as above Eyes: eyes not dysmorphic and + abnormal visual field confrontation ENMT: Ears: no hearing impairment and no external ear abnormality Mouth: no oropharynx abnormality Neck: trachea midline Respiratory: normal respiratory effort; no respiratory distress and no labored breathing Cardiovascular: Rate/Rhythm: regular rate and regular rhythm Gastrointestinal (Abdomen): Abdomen soft without distention. Patient did have some slight pain with palpation of the left side of his abdomen Musculoskeletal: No calf tenderness Skin: no rashes Neurologic: moves all extremities Psychiatric: A+Ox3, euthymic affect Genitourinary: No CVA tenderness with percussion bilaterally at the time of my exam Results & Data Vital Signs (Past 12 Hours) Vital Signs Temp Pulse Pulse Resp BP BP Pulse Ox 01/23/25 19:10 73 171/112 H 100 01/23/25 18:44 84 01/23/25 17:35 59 L 15 169/93 H 97 01/23/25 15:47 77 18 179/115 H 100 01/23/25 15:34 36.8 C 95 H 28 H 183/120 H 96 O2 Del Method 01/23/25 19:10 Room Air 01/23/25 18:44 01/23/25 17:35 Room Air 01/23/25 15:47 Room Air 01/23/25 15:34 Room Air PG Care Time/CCT Total # of Minutes Spent Total Time Spent with Patient: Total time spent is greater than 50% in coordination of care (as documented) at patient's floor/unit and/or counseling patient: Coding Level of Care Code 75552 IN/OBS CONSULT LVL 5,80M Diagnoses Renal calculus, left N20.0
[2025-01-23] MEDS ORDERED: ONDANSETRON INJ 2 MG/ML 2 ML VIAL IV PRN (20:23)
[2025-01-23] MEDS ORDERED: PHENAZOPYRIDINE HCL 200 MG TAB PO PRN (20:23)
[2025-01-23] MEDS ORDERED: POLYETHYLENE (MIRALAX) 17 GM PACK PO PRN (20:23)
[2025-01-23] MEDS ORDERED: ACETAMINOPHEN 325 MG TAB PO PRN (20:23)
[2025-01-23] MEDS ORDERED: GLUCOSE 40% GEL 15 GM TUBE PO PRN (20:23)
[2025-01-23] MEDS ORDERED: GLUCOSE 10 TAB/TUBE PO PRN (20:23)
[2025-01-23] MEDS ORDERED: CARBOHYDRATES FOR HYPOGLYCEMIA PO PRN (20:23)
[2025-01-23] MEDS ORDERED: hydrALAZINE HCL 20 MG/ML VIAL IV PRN (20:23)
[2025-01-23] MEDS ORDERED: GLUCAGON FOR INJ 1 MG VIAL SQ PRN (20:23)
[2025-01-23] MEDS ORDERED: oxyCODONE/ACETAMINOPHEN 5mg/325mg TAB PO PRN (20:23)
[2025-01-23] MEDS ORDERED: DEXTROSE 50% 50 ML SYRINGE IV PRN (20:23)
[2025-01-23] MEDS: cefTRIAXone SODIUM 2,000 MG/50 ML BAG IV SCH (21:42)
[2025-01-23] MEDS: INSULIN ASPART PER UNIT CHARGE SC SCH (21:52)
[2025-01-23] MEDS: LACTATED RINGER'S 1,000 ML IV SCH (22:13)
[2025-01-24] MEDS: MoRPHine SULFATE 4 MG/ML 1 ML CARP\\VIAL IV PRN (02:14)
[2025-01-24] MEDS ORDERED: Nursing to Pharmacy Communication SCH (04:45)
[2025-01-24] MEDS ORDERED: oxyCODONE HCL IR 5 MG TAB (IMMEDIATE RELEASE) PO PRN (05:28)
[2025-01-24] MEDS: HYDROmorphone INJ 0.5 MG/0.5 ML SYR IV PRN (05:36)
[2025-01-24] MEDS: INSULIN ASPART PER UNIT CHARGE SC SCH ×2 (05:47→17:04)
[2025-01-24 06:33] LABS: Hematocrit (blood only) 32.9 % (42.0-52.0); Hemoglobin 11.6 g/dl (14.0-18.0); Mean Corpuscular Hemoglobin 30.2 pg (25.0-34.0); Mean Corpuscular Hgb Conc 35.3 g/dL (32.0-36.0); Mean Corpuscular Volume 85.7 fL (80.0-100.0); Mean Platelet Volume 8.9 fL (9.4-12.4); Platelet Count 143 K/uL (130-400); RDW Standard Deviation 37.1 fL (36.4-46.3); Red Blood Count 3.84 M/uL (4.70-6.10); White Blood Count 5.96 K/ul (4.8-10.8)
[2025-01-24 07:36] LABS: BUN Creatinine Ratio 17.5 (10-20); Calcium 8.5 mg/dl (8.6-10.3); Creatinine Clr Calc Pharmacy 67.5 ml/min; Magnesium 1.5 mg/dl (1.7-2.4); Potassium 3.8 mmol/L (3.5-5.1)
--- NOTE | 2025-01-24 09:12 | Urology Progress Note ---
Date of Service January 24, 2025 Assessment & Plan (1) Acute left flank pain: (2) Left ureteral stone: (3) Hydronephrosis: (4) ALEX (acute kidney injury): Plan: Follow-up of left ureteral stone, ALEX Patient afebrile, hemodynamically stable Labs today reviewedcreatinine 1.54, WBC 5.96, hemoglobin 11.6 Urinalysis on arrival was not suggestive of infection Blood cultures collected and pending Patient denies stone passage overnight, continues to have intermittent left flank discomfort Discussed options for stone management including observation/trial of passage versus surgical intervention After discussion, he wishes to proceed with surgical intervention Proceed to OR for cystoscopy, left ureteroscopy, left stent placement and possible stone treatment/stone basket extraction Ureteral stents discussed in detail Risk and benefits of procedure to be reviewed with patient by Dr. Landry Enriquez n.p.o. for procedure Continue supportive care medical management per hospital medicine service Expected clinical course reviewed, all questions answered Plan Attending note: Obstructing left 3 mm ureteral stone with ALEX Patient independently assessed, examined, interviewed, and evaluated. Agree with note as above. Patient's vitals and labs were all reviewed. Pertinent values in the HPI and plan section. Imaging was reviewed interpreted by myself. Agree with read. Vitals were reviewed. Discussed findings extensively with patient and family. Reviewed with nurse practitioner as well as consulting physicians/team. Patient's complicated medical and surgical history was reviewed and summarized above. Patient's surgical, medical, social, and family history were all reviewed with pertinent values as above. Discussed patient's current diagnosis as well as concerns and issues. Reviewed different options moving forward. Discussed potential risks and benefits as well as possible options and concerns. Reviewed potential surgical options and interventions. Discussed potential issues and concerns related to intervention. Risk and benefits were discussed extensively with patient and any available family. Discussed potential risks related to anesthesia. Discussed risks of bleeding infection and injury. Patient with obstructing stone and persistent ALEX with hydration. 3 mm stone causing considerable obstruction. Imaging was reviewed interpreted by myself left hydronephrosis and hydroureter with approximately 3 mm stone in the distal ureter approximately 1 to 2 cm from the UO. Reviewed extensively different options. Discussed options for conservative measure and maximum expulsion medical therapy and symptom controlled. Discussed ESWL. Discussed Ureteroscopy with extraction and/or laser lithotripsy. Risks and benefits were discussed. Stone free rates were also discussed as well as possibility of multiple procedures. Ureteral stents were discussed as well as post-operative issues and pain management. All questions were answered. Risks and benefits discussed at length for procedure. These include bleeding, infection, injury to surrounding tissues or organs, and risks associated with anesthesia. Patient states understanding and agrees to proceed. Will sign consent and proceed. Plan for Cystoscopy with left stent, possible ureteroscopy and stone treatment. Admission and Anticipated Discharge Date Admission Date: January 23, 2025 Subjective Patient seen and examined at bedside this morning. He is awake and resting in bed. Reports he is tired and intermittent left flank pain overnight. Denies stone passage. Voiding without difficulty. Denies nausea, vomiting, fever or chills. Review of Systems Constitutional: as per Subjective / HPI Genitourinary: + as per Subjective / HPI Physical Exam Constitutional: well developed and well nourished; no acute distress Respiratory: normal respiratory effort; no respiratory distress and no labored breathing Gastrointestinal (Abdomen): Inspection/Auscultation: abdomen normal to inspection Musculoskeletal: Head/Neck/Chest: normocephalic Neurologic: moves all extremities and awake Psychiatric: Orientation: alert and oriented x 3 Results & Data Vital Signs (Past 12 Hours) Vital Signs Temp Pulse Resp BP Pulse Ox O2 Del Method 01/24/25 08:29 36.7 C 68 15 160/95 H 97 Room Air 01/23/25 21:21 Room Air PG Care Time/CCT Total # of Minutes Spent Total Time Spent with Patient: Total time spent is greater than 50% in coordination of care (as documented) at patient's floor/unit and/or counseling patient: Coding Level of Care Code 48087 SUB INP/OBS CARE 2/35MIN Diagnoses Acute left flank pain R10.9 Left ureteral stone N20.1 Hydronephrosis N13.2 Hydronephrosis type: with renal calculous obstruction ALEX (acute kidney injury) N17.9 (3) Hydronephrosis Hydronephrosis type: with renal calculous obstruction Qualified Code(s): N13.2 - Hydronephrosis with renal and ureteral calculous obstruction
[2025-01-24] MEDS: LANTUS PER UNIT CHARGE SQ SCH (09:15)
[2025-01-24] MEDS: ATORVASTATIN 40 MG TAB PO SCH (09:16)
[2025-01-24] MEDS: TAMSULOSIN HCL 0.4 MG CAP PO SCH (09:16)
[2025-01-24] MEDS: LOSARTAN POTASSIUM 50 MG TAB PO SCH (09:16)
[2025-01-24] MEDS ORDERED: MIDAZOLAM HCL 1 MG/ML 2ML VIAL ONE (12:33)
[2025-01-24] MEDS ORDERED: fentaNYL citrate PF 100 MCG/2 ML VIAL ONE (12:34)
[2025-01-24] MEDS ORDERED: ePHEDrine sulfate 50 MG/ML AMP IV PRN (12:56)
[2025-01-24] MEDS ORDERED: ATROPINE SULFATE 0.1 MG/ML 10ML SYR IV PRN (12:56)
[2025-01-24] MEDS ORDERED: fentaNYL citrate PF 100 MCG/2 ML VIAL IV PRN (12:56)
[2025-01-24] MEDS ORDERED: ONDANSETRON INJ 2 MG/ML 2 ML VIAL IV PRN (12:56)
[2025-01-24] MEDS ORDERED: HYDROmorphone INJ 1 MG/ML SYRINGE IV PRN (12:56)
--- NOTE | 2025-01-24 12:58 | Anesthesiology Consultation ---
Date of Service January 24, 2025 Assessment & Plan Chart Review Chart Review: Acceptable Risk for Surgery Consults Requested none ASA ASA3 Proposed Anesthesia Anesthesia Type: General History Surgery Operation Date: 01/24/25 10:25 Proposed Procedures p Cystoscopy, Left Ureteroscopy, Possible Stone Treatment, Left Ureteral Stent Placement - Job Alatorre, DO Height/Weight Height: 5 ft 10 in Weight: 108 kg Allergies Allergy/AdvReac Type Severity Reaction Status Date / Time No Known Allergies Allergy Verified 01/24/25 12:24 Medications Home Medications Medication Instructions Recorded Confirmed Last Taken blood sugar diagnostic (OneTouch #100 ea 01/15/25 Unknown Verio test strips) blood-glucose meter (OneTouch #1 ea 01/15/25 Unknown Ultra2 Meter) lancets 33 gauge (OneTouch Delica #100 ea 01/15/25 Unknown Plus Lancet) losartan 50 mg tablet 50 mg PO DAILY #30 tabs 01/15/25 01/23/25 01/23/25 metformin 500 mg tablet,extended 500 mg PO BID #60 tabs 01/15/25 01/23/25 01/23/25 release 24 hr pen needle, diabetic 31 gauge x #100 ea 01/15/25 Unknown 1/4" (Pen Needle) atorvastatin 80 mg tablet (Lipitor) 40 mg PO DAILY 01/23/25 01/23/25 01/23/25 insulin glargine 100 unit/mL (3 10 - 12 unit subcut DAILY 01/23/25 01/23/25 01/23/25 mL) subcutaneous pen (Basaglar KwikPen U-100 Insulin) Active Medications Generic Name Dose Route Start Last Admin Trade Name Freq PRN Reason Stop Dose Admin Atorvastatin Calcium 40 mg 01/24/25 09:00 01/24/25 09:16 Atorvastatin 40 Mg Tab PO 02/23/25 08:59 40 mg DAILY SIMRAN Administration Hydromorphone HCl 1 mg 01/24/25 05:28 01/24/25 05:36 Hydromorphone Inj 0.5 Mg/0.5 Ml Syr IV 02/07/25 05:27 1 mg Q4H PRN Administration Pain Ceftriaxone Sodium 2,000 mg in 50 mls @ 100 mls/hr 01/23/25 21:00 01/23/25 22:28 Rocephin IV 01/30/25 20:59 Infused Q24H SIMRAN Infusion Insulin Aspart 0 units 01/24/25 06:00 01/24/25 11:51 Insulin Aspart Per Unit Charge SC 02/23/25 05:59 Not Given Q6 SIMRAN Insulin Glargine 8 units 01/24/25 09:00 01/24/25 09:15 Lantus Per Unit Charge SQ 02/23/25 08:59 8 units DAILY SIMRAN Administration Losartan Potassium 50 mg 01/24/25 09:00 01/24/25 09:16 Losartan Potassium 50 Mg Tab PO 02/23/25 08:59 50 mg DAILY SIMRAN Administration Morphine Sulfate 3 mg 01/23/25 20:23 01/24/25 02:14 Morphine Sulfate 4 Mg/Ml 1 Ml Carp\\Vial IV 02/06/25 20:22 3 mg Q3H PRN Administration Mod-Sev Pain (Scale 4-10) Tamsulosin HCl 0.4 mg 01/24/25 09:00 01/24/25 09:16 Tamsulosin Hcl 0.4 Mg Cap PO 02/23/25 08:59 0.4 mg QAM SIMRAN Administration NPO Date Last Intake of Fluids: 01/24/25 Last Intake of Fluids Comment: sips this am with meds- water only Date Last Intake of Solids: 01/23/25 Time Last Intake of Solids: 12:00 Past Medical History Medical History History of cardiac dysrhythmia HTN (hypertension) Diabetes type 2 Exercise / Class Metabolic Activity II 4-5 Yardwork/Stairs/Walk up hill Past Surgical History Surgical History Hx of umbilical hernia repair H/O adenoidectomy Hx of vasectomy Hx of colonoscopy Past Anesthesia History No Hx of Anesthesia Complications History of PONV No Hx of PONV Social History Smoking Status: Never smoker Do You Dip or Chew Tobacco: No Hx Alcohol Use: Yes Alcohol type: hard liquor alcohol intake frequency: a few times a week Hx Substance Use: No substance use type: does not use Physical Exam Vital Signs Last Vital Signs Temp 37 C 01/24/25 12:25 Pulse 88 01/24/25 12:25 Resp 18 01/24/25 12:25 BP 173/104 H 01/24/25 12:25 Pulse Ox 100 01/24/25 12:25 O2 Del Method Room Air 01/24/25 12:25 Constitutional + obese; no acute distress ENMT Mouth: no TMJ abnormality Thyromental Distance: > or= 3.5 Finger Breadths Mallampati Class: II Neck normal visual inspection and + thick neck Respiratory normal respiratory effort Auscultation: lungs clear to auscultation bilaterally Cardiovascular Rate/Rhythm: regular rate and regular rhythm Neurologic moves all extremities Psychiatric Orientation: alert and oriented x 3 Testing Laboratory Results 01/24/25 06:12 01/24/25 06:12 Urine Color Yellow 01/23/25 17:47 Urine Appearance Clear (Clear) 01/23/25 17:47 Urine pH 5.0 (4.5-7.5) 01/23/25 17:47 Ur Specific [place] 1.023 (1.000-1.030) 01/23/25 17:47 Urine Protein Trace (Negative) H 01/23/25 17:47 Urine Glucose (UA) Trace (Negative) H 01/23/25 17:47 Urine Ketones 2+ (Negative) H 01/23/25 17:47 Urine Nitrite Negative (Negative) 01/23/25 17:47 Ur Leukocyte Esterase Negative (Negative) 01/23/25 17:47 Urine WBC (Auto) 0-5 /hpf (0-5) 01/23/25 17:47 Urine RBC (Auto) >20 /hpf (0-2) H 01/23/25 17:47 U Hyaline Cast (Auto) 6-10 /lpf (0-2) H 01/23/25 17:47 U Epithel Cells (Auto) 0-2 /hpf (0-2) 01/23/25 17:47 Urine Bacteria (Auto) None Seen (None Seen) 01/23/25 17:47 01/24/25 01/24/25 11:43 05:42 POC Glucose 137 H 122 H
[2025-01-24] MEDS ORDERED: KETOROLAC 30 MG/ML VIAL ONE (13:40)
[2025-01-24] MEDS ORDERED: PROPOFOL IV EMULSION 10 MG/ML 20 ML VIAL IV ONE (13:40)
[2025-01-24] MEDS ORDERED: LIDOCAINE 2% 2 ML VIAL/AMP(20MG/ML) INFIL ONE (13:40)
--- NOTE | 2025-01-24 14:01 | Operative Report ---
PG Post Operative Report Pre & Post Diagnosis Operation Date: 01/24/25 10:25 Pre-Op Diagnosis: Left Renal Calculus Post-Op Diagnosis: Left Renal Calculus I identified the patient and participated in the time-out.: Yes Procedure Operation Date: 01/24/25 10:25 Actual Procedures Cystoscopy, Left Ureteroscopy, Retrograde pyelogram, stone basket extraction, ur eteral dilation, and Left Ureteral Stent Placement(Left) - Job Alatorre, Surgeon Job Alatorre, II, DO [place] None Estimated Blood Loss 1 Findings Consistent with Post-Op Diagnosis Stone significantly impacted approx 1.5 cm from the UO within the distal ureter. Stricture at site of impacted stone. Stone displaced, stricture dilated, and stone removed. Specimens Stone - Left Ureter Drains 6 Fr x 26 cm stent left Anesthesia Type General Complications none Disposition Disposition: Recovery Room Indications Patient with bothersome stones. Risks and benefits discussed at length. Description of Procedure Patient was consented and brought back to the operating room. Patient was placed under anesthesia in the supine position and moved to the dorsal lithotomy position. Patient was prepped and draped in the regular sterile fashion. A time out was completed. A 30degree Cystoscope was placed into the bladder and the entire bladder was examined. The UO's were identified. The UO was cannulized with a catheter and a retrograde pyelogram was completed. A wire was then placed. The Rigid ureteroscope was taken into the ureter. The stone was identified. The stone appeared to be severely impacted in the distal ureter approximately 1.5 cm from the UO. With some manipulation of the wire and the scope the stone was able to be displaced more proximally. To the area was inspected and found to be significantly strictured. This was dilated the scope was then advanced and the stone was able to be identified. A basket was selected. The stone was grasped and removed and sent for analysis. The entire area was once again examined. No residual stones or areas of concern were noted. No significant injury from dilation. The scope was slowly removed with the wire left in place. Contrast was placed through the scope for a pyelogram to assist in stent placement. The entire ureter was examined as the scope was slowly removed. No obstructions or other areas of concern were noted. With the wire in place, a 6 Fr Double J stent was placed. It was confirmed with fluoroscopy. With the stent in place, the bladder was emptied. The scope was removed. The patient was cleaned, aroused from anesthesia, and transferred to the pacu in stable condition having tolerated the procedure well with no complications. I was present and participated in all aspects of the procedure. The patient will be monitored in the PACU until transferred. Plan to transfer back to the floor. Will plan to remove stent in 1 to 2 weeks in the office I attest to the content of the Intraoperative Record and any orders documented therein. Any exceptions are noted below.
--- NOTE | 2025-01-24 14:12 | Hospitalist Progress Note ---
Date of Service January 24, 2025 Assessment & Plan (1) Renal calculus, left: (2) Obstructive uropathy: (3) Diabetes type 2: (4) HTN (hypertension): (5) HLD (hyperlipidemia): (6) KRISHNA on CPAP: Plan 54-year-old male with a past medical history of KRISHNA on CPAP, HTNuncontrolled, noncompliance, HLD (previous refusal of statin), recently admitted on 01/14/25- 01/15/25 for uncontrolled hyperglycemia requiring insulin gtt and new diagnosis of uncontrolled DM II with A1C of 12.9. His losartan was increased to 50 mg once daily. He was also noted to have hypertirglyceridemia with level of 676, total cholesterol elevated at 238 and was started on high dose statin therapy. On 01/23, the patient presents to the hospital with acute left-sided flank and LLQ pain into the left testicle, rating it is severe. He is being managed for the following: Obstructive uropathy Obstructive left renal calculus Mild hydronephrosis, Hydroureter, perinephritic and periureteral fat stranding - concerning for pyelonephritis Suspected polycystic kidney disease ALEX Patient comes in with left flank pain. See above. Admitting CTAP with obstructing left renal calculus measuring 3 mm, multiple bilateral probable renal cyst, fatty infiltration of the liver. Baseline creatinine of around 1.0, admitting creatinine of 1.76 Continue with IV fluids, pain management, bowel regimen. Avoid nephrotoxic, labs in AM. Cr down to 1.54 today. Nephrology as an outpatient for suspected PCKD Urology on board, plan for stent placement today. Follow admitting blood culture, continue with Rocephin 01/23 for possible pyelonephritis Fall precautions/assist with ambulation due to narcotic pain meds Hypomagnesemia: Magnesium of 1.5 today, monitor and replete. 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 f/u w/ diabetic clinic on dc. Hypertensive Urgency HTN - Losartan 50 mg once daily, c/w hydralazine PRN for hypertensive urgency HLD - ho significant elevation in triglycerides of over 600, total cholesterol over 230, can be followed up by PCP - Pt has been seen by PCP last - atorvastatin was decreased from 80 to 40 mg daily DVT ppx: Hep sc CODE: Full code Dispo: From home, likely to remain in the hospital x 1-2 days Admission and Anticipated Discharge Date Admission Date: January 23, 2025 Subjective Patient seen and examined at bedside this morning. He is awake and resting in bed. Reports left flank being bearable w/ pain meds. Denies stone passage. Voiding without difficulty. Denies nausea, vomiting, fever or chills. Is NPO. Physical Exam Physical Exam: General: awake, alert, no apparent distress, white male Head: Normocephalic, atraumatic ENT: PERRL, EOMI, no pharyngeal exudate, mucous membranes moist Chest: Clear to auscultation, on room air, no adventitious breath sounds Cardiac: Regular rate and rhythm, no murmur, no JVD, normal peripheral pulses, good capillary refill Abdominal: NABS x 4 quadrants, soft, nondistended, + LLQ pain with palpation, no rebound or guarding Back : -ve CVA tenderness left flank region Extremities: Normal inspection, no peripheral edema or erythema, calfs nontender to palpation Psych: Normal mood and affect Neuro: AAO x 3, strength intact bilaterally and rated 5/5, no motor deficits, speech is clear, no peripheral sensory deficits Results & Data Results & Data Vital Signs (Past 12 Hours) Vital Signs Temp Pulse Pulse Resp BP Pulse Ox O2 Del Method 01/24/25 12:25 37 C 88 18 173/104 H 100 Room Air 01/24/25 12:00 36.5 C 70 16 160/94 H 97 Room Air 01/24/25 08:29 36.7 C 68 15 160/95 H 97 Room Air
--- NOTE | 2025-01-24 14:31 | Fluoroscopy Report ---
FL retrograde includes kub CLINICAL HISTORY: LEFT COMPARISON STUDY: None FLUOROSCOPY TIME: 29 seconds FLUOROSCOPY IMAGES: 4 EXPOSURE DOSE: 10.5 mGy FINDINGS: Fluoroscopy was provided for urologic procedure. IMPRESSION: Intraoperative fluoroscopy. ACT 112: Negative or not required by law. Electronically signed by: Carlos Castañeda M.D. 01/24/2025 2:30 PM
--- NOTE | 2025-01-24 14:51 | Anesthesiology Progress Note ---
Date of Service January 24, 2025 Anesthesia Post Procedure Vital Signs Vital Signs: Temp Pulse Pulse Pulse Resp BP BP 01/24/25 14:34 36.6 C 70 16 154/94 H 01/24/25 14:16 36.4 C L 85 12 146/78 H 01/24/25 14:10 81 13 134/80 01/24/25 14:02 36 C L 83 13 135/67 01/24/25 12:25 37 C 88 18 173/104 H 01/24/25 12:00 36.5 C 70 16 160/94 H 01/24/25 08:29 36.7 C 68 15 160/95 H 01/23/25 21:21 01/23/25 20:23 36.3 C L 72 16 01/23/25 19:10 73 01/23/25 18:44 84 01/23/25 17:35 59 L 15 01/23/25 15:47 77 18 01/23/25 15:34 36.8 C 95 H 28 H 183/120 H BP Pulse Ox O2 Del Method O2 Flow Rate 01/24/25 14:34 99 Room Air 01/24/25 14:16 98 Room Air 01/24/25 14:10 100 Oxymask 2 01/24/25 14:02 100 Oxymask 9 01/24/25 12:25 100 Room Air 01/24/25 12:00 97 Room Air 01/24/25 08:29 97 Room Air 01/23/25 21:21 Room Air 01/23/25 20:23 174/97 H 97 Room Air 01/23/25 19:10 171/112 H 100 Room Air 01/23/25 18:44 01/23/25 17:35 169/93 H 97 Room Air 01/23/25 15:47 179/115 H 100 Room Air 01/23/25 15:34 96 Room Air Pain Intensity Groin: Pain Intensity: 6 Transfer of Care Handoff Completed per policy Notes Mental Status: alert / awake / arousable Patient Amnestic to Procedure: Yes Nausea / Vomiting: adequately controlled Pain: adequately controlled Airway Patency, RR, SpO2: stable & adequate BP & HR: stable & adequate Hydration State: stable & adequate Anesthetic Complications: no major complications apparent and Pt Satisfied with anesthetic care
[2025-01-24] MEDS: SODIUM CHLORIDE 0.9% 1,000 ML IV SCH (15:22)
[2025-01-24] MEDS: MAGNESIUM SULFATE / D5W 1 GM/100 ML BAG IV SCH (15:22)
[2025-01-25 03:08] VITALS: TEMP 98.1
[2025-01-25 05:53] LABS: Hematocrit (blood only) 33.4 % (42.0-52.0); Hemoglobin 11.7 g/dl (14.0-18.0); Mean Corpuscular Hemoglobin 30.2 pg (25.0-34.0); Mean Corpuscular Volume 86.3 fL (80.0-100.0); Mean Platelet Volume 8.9 fL (9.4-12.4); Platelet Count 151 K/uL (130-400); RDW Coefficient of Variation 12.3 % (11.5-14.5); RDW Standard Deviation 38.5 fL (36.4-46.3); Red Blood Count 3.87 M/uL (4.70-6.10); White Blood Count 4.17 K/ul (4.8-10.8)
[2025-01-25 06:28] LABS: BUN Creatinine Ratio 16.7 (10-20); Calcium 8.7 mg/dl (8.6-10.3); Creatinine Clr Calc Pharmacy 96.2 ml/min; Magnesium 1.9 mg/dl (1.7-2.4); Phosphorus 3.1 mg/dl (2.5-4.9); Potassium 4.1 mmol/L (3.5-5.1)
[2025-01-25 07:28] VITALS: RESP 18; O2SAT 100
--- NOTE | 2025-01-25 07:52 | Urology Progress Note ---
Date of Service January 25, 2025 Assessment & Plan (1) Left ureteral stone: (2) Hydronephrosis: (3) ALEX (acute kidney injury): Plan: - Pt POD#1 s/p cystoscopy, left ureteroscopy, stone basket extraction and left ureteral stent placement - Doing well, progressing as expected - Afebrile, lab work reviewed - creatinine improved to 1.08, WBC 4.17 - Blood cultures with no growth to date - Tolerating left ureteral stent with minimal bother - Okay to d/c from perspective when medically stable - Recommend d/c with Tamsulosin, prn Pyridium and prn pain medication for stent management - Expected clinical course reviewed, all questions answered - Will arrange outpatient follow-up with our service for cystoscopy and stent removal - will sign off Admission and Anticipated Discharge Date Admission Date: January 23, 2025 Subjective Patient seen and examined at bedside this morning. No acute issues overnight. Denies flank discomfort. He is voiding spontaneously without difficulty. Notes hematuria postprocedure. No fever or chills. Review of Systems Constitutional: as per Subjective / HPI Genitourinary: + as per Subjective / HPI Physical Exam Constitutional: well developed and well nourished; no acute distress Respiratory: normal respiratory effort; no respiratory distress and no labored breathing Gastrointestinal (Abdomen): Inspection/Auscultation: abdomen normal to inspection Musculoskeletal: Head/Neck/Chest: normocephalic Neurologic: moves all extremities and awake Psychiatric: Orientation: alert and oriented x 3 Results & Data Vital Signs (Past 12 Hours) Vital Signs Temp Pulse Pulse Resp BP Pulse Ox O2 Del Method 01/25/25 07:27 36.7 C 78 18 163/101 H 100 Room Air 01/25/25 03:07 36.7 C 80 16 159/104 H 99 CPAP 01/24/25 23:44 36.5 C 76 16 158/98 H 99 CPAP PG Care Time/CCT Total # of Minutes Spent Total Time Spent with Patient: Total time spent is greater than 50% in coordination of care (as documented) at patient's floor/unit and/or counseling patient: Coding Level of Care Code 10909 SUB INP/OBS CARE 10/16MIN Diagnoses Left ureteral stone N20.1 Hydronephrosis N13.2 Hydronephrosis type: with renal calculous obstruction ALEX (acute kidney injury) N17.9 (2) Hydronephrosis Hydronephrosis type: with renal calculous obstruction Qualified Code(s): N13.2 - Hydronephrosis with renal and ureteral calculous obstruction
--- NOTE | 2025-01-25 11:13 | Discharge Summary ---
Date of Service January 25, 2025 Admission HPI Per Admitting Provider This is a 54-year-old male with a past medical history of KRISHNA on CPAP, HTNuncontrolled, noncompliance, HLD (previous refusal of statin), recently admitted on 01/14/25- 01/15/25 for uncontrolled hyperglycemia requiring insulin gtt and new diagnosis of uncontrolled DM II with A1C of 12.9. His losartan was increased to 50 mg once daily. He was also noted to have hypertirglyceridemia with level of 676, total cholesterol elevated at 238 and was started on high dose statin therapy. Today the patient presents to the hospital with acute left-sided flank and LLQ pain into the left testicle, rating it is severe. Denies nausea or vomiting. Feels the urge to urinate but cannot seem to go. He has noticed small amount of blood in the urine on Friday x 3 within 2 hours, had no pain at that time, this resolved quickly and has not recurred. He did get a [employer] response after that timeframe. He was traveling from [facility] this morning, and noticed left sided flank pain which extended to LLQ and into the Left groin. No diarrhea no flatus. Reported pain was 10/10 earlier, admitted to sweats and chills. He states pain medications have helped, occasionally has left flank pain, currently states pain is 5/10. In the ER patient was started on IV fluids, Flomax, Toradol 15 mg x 1, morphine sulfate 4 mg x 1 and Dilaudid 1.5 mg total for pain already given. prn meds ordered. His was present at bedside and supports the history. Admission Exam Per Admitting Provider General: awake, alert, no apparent distress, white male Head: Normocephalic, atraumatic ENT: PERRL, EOMI, no pharyngeal exudate, mucous membranes moist Chest: Clear to auscultation, on room air, no adventitious breath sounds Cardiac: Regular rate and rhythm, no murmur, no JVD, normal peripheral pulses, good capillary refill Abdominal: NABS x 4 quadrants, soft, nondistended, + LLQ pain with palpation, no rebound or guarding Back : + CVA tenderness left flank region Extremities: Normal inspection, no peripheral edema or erythema, calfs nontender to palpation Psych: Normal mood and affect Neuro: AAO x 3, strength intact bilaterally and rated 5/5, no motor deficits, speech is clear, no peripheral sensory deficits Principal Diagnosis Obstructive uropathy Obstructive left renal calculus Mild hydronephrosis, Hydroureter, perinephritic and periureteral fat stranding - concerning for pyelonephritis Suspected polycystic kidney disease Acute Kidney Injury Discharge Exam General: awake, alert, no apparent distress, white male Head: Normocephalic, atraumatic ENT: PERRL, EOMI, no pharyngeal exudate, mucous membranes moist Chest: Clear to auscultation, on room air, no adventitious breath sounds Cardiac: Regular rate and rhythm, no murmur, no JVD, normal peripheral pulses, good capillary refill Abdominal: NABS x 4 quadrants, soft, nondistended, - LLQ pain with palpation, no rebound or guarding Back : -ve CVA tenderness left flank region Extremities: Normal inspection, no peripheral edema or erythema, calfs nontender to palpation Psych: Normal mood and affect Neuro: AAO x 3, strength intact bilaterally and rated 5/5, no motor deficits, speech is clear, no peripheral sensory deficits Discharge Data Allergies Allergy/AdvReac Type Severity Reaction Status Date / Time No Known Allergies Allergy Verified 01/24/25 12:24 Consultations 01/23/25 18:46 ED Decision to Admit Stat 01/23/25 20:23 Consult Urology Routine Procedures Performed Operation Date: 01/24/25 10:25 Actual Procedures p Cystoscopy, Left Ureteroscopy, Retrograde pyleogram Left Ureteral Stent Placement(Left) - Job Alatorre, Ordered Studies 01/23/25 16:10 CT abd pelvis wo con Stat 01/24/25 FL retrograde includes kub Routine Hospital Course (1) Renal calculus, left: (2) Obstructive uropathy: (3) Diabetes type 2: (4) HTN (hypertension): (5) HLD (hyperlipidemia): (6) KRISHNA on CPAP: Plan 54-year-old male with a past medical history of KRISHNA on CPAP, HTNuncontrolled, noncompliance, HLD (previous refusal of statin), recently admitted on 01/14/25- 01/15/25 for uncontrolled hyperglycemia requiring insulin gtt and new diagnosis of uncontrolled DM II with A1C of 12.9. His losartan was increased to 50 mg once daily. He was also noted to have hypertirglyceridemia with level of 676, total cholesterol elevated at 238 and was started on high dose statin therapy. On 01/23, the patient presents to the hospital with acute left-sided flank and LLQ pain into the left testicle, rating it is severe. He was managed for the following: Obstructive uropathy Obstructive left renal calculus Mild hydronephrosis, Hydroureter, perinephritic and periureteral fat stranding - concerning for pyelonephritis Suspected polycystic kidney disease ALEX Patient comes in with left flank pain. See above. Admitting CTAP with obstructing left renal calculus measuring 3 mm, multiple bilateral probable renal cyst, fatty infiltration of the liver. Baseline creatinine of around 1.0, admitting creatinine of 1.76 Pain is fairly controlled, continue with oral antibiotic to complete 7 days therapy for possible pyelonephritis. Creatinine resolved, status post IV fluid, will DC IV fluid today. Nephrology as an outpatient for suspected PCKD Urology on board, Status post stent placement 01/24, follow-up with urology in 2 to 4 weeks time upon discharge. Hypomagnesemia: Stable now. 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 f/u w/ diabetic clinic on dc. Hypertensive Urgency HTN - Losartan 50 mg once daily, c/w hydralazine PRN for hypertensive urgency HLD - ho significant elevation in triglycerides of over 600, total cholesterol over 230, can be followed up by PCP - Pt has been seen by PCP last - atorvastatin was decreased from 80 to 40 mg daily DVT ppx: Hep sc CODE: Full code Dispo: From home, likely to remain in the hospital x 1-2 days Patient is being discharged to home with following instructions at the point of discharge: Follow-up with your primary care physician within a week time and likely you will need labs CBC/CMP/magnesium/phosphorus. You will be discharged on antibiotic to complete 7 days total therapy for possible pyelonephritis. Take you antibiotic daily with dinner for next five days starting tonight. As discussed at the bedside, recommend that you establish with diabetic clinic and follow-up with them. Follow-up with urology upon discharge in 2-4 weeks. For your suspected polycystic kidney disease, recommend that you follow-up with nephrology upon discharge. Coordinate with the PCP office to set up the referral. Maintain compliance with the home medications. Take your medications as prescribed. Please make sure that you are able to get your medications today by calling your pharmacy before you leave the hospital so that your treatment continuity is not broken. Home Health Attestation I certify that this patient is under my care and that I, or a physicians custody assistant working with me, had a face to-face encounter that meets the [facility] [id number] encounter requirements with this patient. The encounter with the patient was in whole, or in part, for the following medical condition, which is the primary reason for home health care (list medical condition): I certify that, based on my findings, the following services are medically necessary home health services: My clinical findings support the need for the above services because: Further, I certify that my clinical findings support that this patient is homebound (i.e. absences from home require considerable and taxing effort and are for medical reasons or druze services or infrequently or of short duration when for other reasons) because: Certification for Home Health Services: Based on the above findings, I certify that this patient is confined to the home and needs intermittent correction care, physical therapy and/or speech therapy or continues to need occupational therapy. The patient is under my care, and I have initiated the establishment of the plan of care. This patient will be followed by a physician who will periodically review the plan of care. Total Time Total Time Spent Total Time Spent (In Minutes): 35 Discharge Plan Discharge Items Patient Disposition: Home - Self-Care Reason For Visit: LEFT RENAL CALICULUS Discharge Diagnosis: Obstructive uropathy Obstructive left renal calculus Mild hydronephrosis, Hydroureter, perinephritic and periureteral fat stranding - concerning for pyelonephritis Suspected polycystic kidney disease Acute Kidney Injury Condition on Discharge: Fair Activity: Resume your previous activity Non-emergency contact: Primary Care Provider Call non-emergency contact if: you have any medication questions and your symptoms worsen Follow-up/Referrals: Nimisha Riley DO [Primary Care Provider] - (Date & Time 01/31/2025 1:20 PM Provider: Nimisha Riley DO [facility] ) Diet: Carb Consistent or DM2 Addtl Attending Provider Instructions: Follow-up with your primary care physician within a week time and likely you will need labs CBC/CMP/magnesium/phosphorus. You will be discharged on antibiotic to complete 7 days total therapy for possible pyelonephritis. Take you antibiotic daily with dinner for next five days starting tonight. As discussed at the bedside, recommend that you establish with diabetic clinic and follow-up with them. Follow-up with urology upon discharge in 2-4 weeks. For your suspected polycystic kidney disease, recommend that you follow-up with nephrology upon discharge. Coordinate with the PCP office to set up the referral. Maintain compliance with the home medications. Take your medications as prescribed. Please make sure that you are able to get your medications today by calling your pharmacy before you leave the hospital so that your treatment continuity is not broken. Pending Studies at Discharge: Yes Stand-Alone Forms: My [facility], Smoking Cessation Medications and DC Order Prescriptions: New tamsulosin 0.4 mg Capsule 0.4 mg PO QAM Qty: 30 0RF phenazopyridine [Pyridium] 200 mg Tablet 200 mg PO TID PRN (Reason: pain) 3 Days Qty: 9 0RF levofloxacin 750 mg tablet 750 mg PO DAILY 5 Days Qty: 5 0RF Probiotic 3 billion cell capsule 3,000 mmu cells PO DAILY 7 Days Qty: 7 0RF Rx Instructions: administer with a meal Continued atorvastatin [Lipitor] 80 mg tablet 40 mg PO DAILY insulin glargine [Basaglar KwikPen U-100 Insulin] 100 unit/mL (3 mL) insulin pen 10 - 12 unit subcut DAILY (DME) blood-glucose meter [OneTouch Ultra2 Meter] Mis See Rx Instructions .Route Qty: 1 0RF Rx Instructions: As directed (DME) OneTouch Verio test strips Strip See Rx Instructions .Route Qty: 100 0RF Rx Instructions: As directed (DME) lancets [OneTouch Delica Plus Lancet] 33 gauge misc See Rx Instructions .Route Qty: 100 0RF Rx Instructions: As directed (DME) pen needle, diabetic [Pen Needle] 31 gauge x 1/4" needle See Rx Instructions .Route Qty: 100 0RF Rx Instructions: As directed losartan 50 mg tablet 50 mg PO DAILY Qty: 30 0RF metformin 500 mg tablet extended release 24 hr 500 mg PO BID Qty: 60 0RF Discharge Orders: Discharge Order (Routine); Ordered 01/25/25 Ordered By: Rishikesh Sanders Admission Data Admit Date/Time: 01/23/25 18:45 Attending Provider: Scar Sanders Admit Provider: Yash Linares Primary Care Provider: Nimisha Riley Other Providers: Yash Linares; Ej Styles; Nimisha Pedersen; Job Alatorre; Margot Chahal; Martir Haynes; Eloisa Morris; Jose Saunders; Vinh Esquivel
[2025-01-25 11:55] VITALS: BP 154/88; PULSE 80
== END 2025-01-25 12:59 | disposition home or self-care (01) | DRG 660 ==
LOC: ED 15:30 → 3E 18:45 → SUATTDRO 18:45 → 3E 19:44